=== PATIENT | male | born 1950 | race Caucasian/White ===

== ENCOUNTER 2016-05-14 12:03 | Emergency (ER) | payer MEDICARE, OTHER ==
[2016-05-14 12:22] VITALS: TEMP 97.9
--- NOTE | 2016-05-14 12:27 | ED.PDOC ---
History of Present Illness - General Chief Complaint: General Stated Complaint: diarrhea/weakness Time Seen by Provider: 05/14/16 12:09 Source: patient Exam Limitations: no limitations - History of Present Illness Initial Comments: Mr. Felipe Chandler 66 y/o male with history of Afib and HTN stated that he was moving his horse trailer today then he had sudden onset of watery diarrhea which he could not control and soiled his pants and got weak all over no history of fall.No dizziness no nausea vomiting no chest pains.No abdominal pain ,denies recent antibiotics. Timing/Duration: 1-3 hours Severity: moderate Improving Factors: nothing Worsening Factors: nothing Associated Symptoms: weakness Allergies/Adverse Reactions: Allergies Penicillin G Allergy (Verified 09/30/15 09:35) Home Medications: Ambulatory Orders Levothyroxine Sodium [Synthroid] 50 mcg PO DAILY 09/30/15 Metoprolol Tartrate 50 mg PO DAILY 09/30/15 Tadalafil [Cialis] 20 mg PO DAILY 09/30/15 Zolpidem Tartrate [Ambien] 10 mg PO BEDTIME 09/30/15 Review of Systems - Review of Systems Constitutional: States: see HPI EENTM: States: no symptoms reported Respiratory: States: no symptoms reported Cardiology: States: no symptoms reported Gastrointestinal/Abdominal: States: see HPI Genitourinary: States: no symptoms reported Musculoskeletal: States: no symptoms reported Skin: States: no symptoms reported Neurological: States: no symptoms reported Endocrine: States: no symptoms reported Hematologic/Lymphatic: States: no symptoms reported Past Medical History (General) - Patient Medical History Hx Cardiac Disorders: Yes - a fib Hx Congestive Heart Failure: No Hx Hypertension: Yes Hx Thyroid Disease: Yes Hx Diabetes: No Surgical History: appendectomy, cholecystectomy, other - neck,knee,rotator cuff, lumbar spine,colonoscopy - Social History Hx Tobacco Use: No Hx Chewing Tobacco Use: No - Activities of Daily Living Patient Lives Alone: No - Grooming Ability: Independent Eating (Feeding) Ability: Independent Toileting Ability: Standby Assistance Family Medical History - Family History Father Hx Family Hypertension: Yes - brother Hx Cardiac Disease: Yes - dad Hx Family Diabetes: Yes - brother Hx Family Cancer: Yes - lungs-mom; Mother Family History: Unknown Living Status: Hx Family Cancer: Yes Physical Exam - Physical Exam General Appearance: Alert, Comfortable, No apparent distress, Other - speech fluent Eye Exam: bilateral normal Ears, Nose, Throat: hearing grossly normal, normal ENT inspection, normal pharynx Neck: non-tender, full range of motion, supple Respiratory: chest non-tender, lungs clear, normal breath sounds, no respiratory distress, no accessory muscle use Cardiovascular/Chest: normal peripheral pulses, regular rate, rhythm, no edema, no gallop, no JVD, no murmur Peripheral Pulses: radial,right: 2+, radial,left: 2+ Gastrointestinal/Abdominal: normal bowel sounds, non tender, soft Back Exam: normal inspection, no CVA tenderness, no vertebral tenderness Extremity: normal range of motion, non-tender, normal inspection Neurologic: no motor/sensory deficits, alert, normal mood/affect, oriented x 3 Skin Exam: normal color, warm/dry Lymphatic: no adenopathy Progress - Results/Orders Results/Orders: 05/14/16 13:00 EKG STAT Laboratory Results WBC 7.7 K/mm3 (4.8-10.8) 05/14/16 12:35 RBC 4.72 M/mm3 (4.70-6.10) 05/14/16 12:35 Hgb 13.8 gm/dL (14.0-18.0) L 05/14/16 12:35 Hct 41.6 % (42.0-52.0) L 05/14/16 12:35 MCV 88.0 fl (80.0-94.0) 05/14/16 12:35 MCH 29.2 pg (27.0-31.0) 05/14/16 12:35 MCHC 33.2 g/dL (33.0-37.0) 05/14/16 12:35 RDW 15.4 % (11.5-14.5) H 05/14/16 12:35 Plt Count 286 K/mm3 (130-400) 05/14/16 12:35 MPV 8.2 fl (7.40-10.4) 05/14/16 12:35 Absolute Neuts (auto) 5.30 K/uL (1.8-6.8) 05/14/16 12:35 Absolute Lymphs (auto) 1.00 K/uL (1.0-3.4) 05/14/16 12:35 Absolute Monos (auto) 0.60 K/uL (0.2-0.8) 05/14/16 12:35 Absolute Eos (auto) 0.70 K/uL (0.0-0.4) H 05/14/16 12:35 Absolute Basos (auto) 0.10 K/uL (0.0-0.1) 05/14/16 12:35 Neutrophils % 68.9 % (42.0-78.0) 05/14/16 12:35 Lymphocytes % 12.5 % (20.0-50.0) L 05/14/16 12:35 Monocytes % 8.1 % (2.0-9.0) 05/14/16 12:35 Eosinophils % 9.7 % (1.0-5.0) H 05/14/16 12:35 Basophils % 0.8 % (0.0-2.0) 05/14/16 12:35 Sodium 136 mmol/L (135-145) 05/14/16 12:35 Potassium 4.4 mmol/L (3.6-5.0) 05/14/16 12:35 Chloride 103 mmol/L (101-111) 05/14/16 12:35 Carbon Dioxide 25 mmol/L (21-31) 05/14/16 12:35 Anion Gap 12.4 (12-18) 05/14/16 12:35 BUN 18 mg/dL (7-18) 05/14/16 12:35 Creatinine 1.26 mg/dL (0.6-1.3) 05/14/16 12:35 BUN/Creatinine Ratio 14.3 (10-20) 05/14/16 12:35 Random Glucose 92 mg/dL (70-105) 05/14/16 12:35 Serum Osmolality 273.5 mOsm/L (275-295) L 05/14/16 12:35 Calcium 9.7 mg/dL (8.4-10.2) 05/14/16 12:35 Total Bilirubin 0.9 mg/dL (0.2-1.0) 05/14/16 12:35 AST 20 IU/L (10-42) 05/14/16 12:35 ALT 11 IU/L (10-60) 05/14/16 12:35 Alkaline Phosphatase 95 IU/L (42-121) 05/14/16 12:35 Serum Total Protein 7.8 gm/dL (6.4-8.2) 05/14/16 12:35 Albumin 4.0 g/dl (3.2-5.5) 05/14/16 12:35 Globulin 3.8 gm/dL (2.3-3.5) H 05/14/16 12:35 Albumin/Globulin Ratio 1.1 (1.1-1.9) 05/14/16 12:35 Urine Color Yellow (Yellow) 05/14/16 12:53 Urine Appearance Clear (Clear) 05/14/16 12:53 Urine pH 7.5 (4.5-7.8) 05/14/16 12:53 Ur Specific [place] 1.020 (1.005-1.030) 05/14/16 12:53 Urine Protein Negative mg/dL 05/14/16 12:53 Urine Glucose (UA) Negative mg/dL (Negative) 05/14/16 12:53 Urine Ketones Negative mg/dL (NEGATIVE) 05/14/16 12:53 Urine Blood Trace-intact (Negative) H 05/14/16 12:53 Urine Nitrite Negative 05/14/16 12:53 Urine Bilirubin Negative (NEGATIVE) 05/14/16 12:53 Urine Urobilinogen 0.2 mg/dL (0.2-1.0) 05/14/16 12:53 Ur Leukocyte Esterase Negative (Negative) 05/14/16 12:53 Urine RBC 0-1 /hpf 05/14/16 12:53 Urine WBC 0 /hpf 05/14/16 12:53 Ur Epithelial Cells 0 /hpf 05/14/16 12:53 Urine Bacteria 0 05/14/16 12:53 - EKG/XRAY/CT EKG: Sinus, no ST T wave changes Comments: Heart rate 67 CT: HEAD w/o- no acute abnormalities noted Departure - Departure Clinical Impression: Diarrhea, Weakness generalized, Dizziness, History of atrial fibrillation, Eosinophilia Back ache Qualifiers: Back pain location: low back pain Back pain laterality: unspecified Sciatica presence: without sciatica Qualifier Code: (M54.5) Low back pain Time of Disposition: 14:20 Disposition: Discharge to Home or Self Care Condition: Good Departure Forms: ED Discharge - Pt. Copy, Patient Portal Self Enrollment Referrals: Andre Daley MD [Primary Care Provider] - 1-2 Weeks Home Medications: Ambulatory Orders Levothyroxine Sodium [Synthroid] 50 mcg PO DAILY 09/30/15 Metoprolol Tartrate 50 mg PO DAILY 09/30/15 Tadalafil [Cialis] 20 mg PO DAILY 09/30/15 Zolpidem Tartrate [Ambien] 10 mg PO BEDTIME 09/30/15 Additional Instructions: RETURN TO EMERGENCY ROOM NEEDED; FOLLOW UP WITH YOUR DOCTOR TOMORROW CALL HIS OFFICE FOR APPOINTMENT;CONTINUE WITH YOU HOME MEDICATION;RESUME Aspirin 81 mg daily
[2016-05-14] MEDS ORDERED: LACTATED RINGERS 1,000 ML IVS ONE (12:28)
--- NOTE | 2016-05-14 13:38 | CT ---
PROCEDURE: Head HISTORY: weakness,dizziness Indication: Same as above Comparison: None Technique: CT of the head was done without intravenous contrast was done in the orthogonal planes. This exam was performed according to our departmental dose-optimization program, which includes automated exposure control, adjustment of the mA and/or KV according to the patient's size and/or use of iterative reconstruction technique. FINDINGS: There is no intracranial hemorrhage, midline shift mass effect or acute focal infarct. There is prominence of the sylvian fissures and the cortical sulci reflecting age related volume loss. If clinical concern exists regarding an acute ischemic/vascular pathology being responsible for patient's symptomatology, an MRI of the brain is more sensitive than the current study, in ruling out such a possibility. There is good heart/white matter differentiation. The ventricular system is normal. The mastoid air cells are unremarkable . The paranasal sinuses show underlying changes of mild chronic sinusitis . There is no visualization of acute fractures involving the calvarium or the skull base. IMPRESSION: There is no acute intracranial abnormality. Electronically signed by: Dayne Rivera MD 05/14/2016 1:37 PM CDT
[2016-05-14] MEDS ORDERED: HYDROcodone 10MG/APAP 325MG 1 EA TAB PO ONE (14:23)
[2016-05-14 14:37] VITALS: BP 127/85; O2SAT 100
== END 2016-05-14 14:38 | disposition home or self-care (01) ==
LOC: ER 12:03
DX: R19.7 Diarrhea, unspecified (principal); R53.1 Weakness; I48.91 Unspecified atrial fibrillation; D72.1 Eosinophilia; R42 Dizziness and giddiness; M54.5 Low back pain; I10 Essential (primary) hypertension; E07.9 Disorder of thyroid, unspecified; Z88.0 Allergy status to penicillin; Z79.899 Other long term (current) drug therapy
CPT/HCPCS: 36415; 70450; 80053; 81001; 85025; 93005; J7120

== ENCOUNTER → 2016-05-22 | Outpatient (CLI) | payer MEDICARE, OTHER | END | disposition home or self-care (01) | LOC: GMAB 14:53 | PROVIDERS: ATTEND Family Medicine | DX: M62.81 Muscle weakness (generalized) (principal) ==

== ENCOUNTER → 2016-05-29 | Outpatient (CLI) | payer MEDICARE, OTHER ==
--- NOTE | 2016-05-30 01:00 | US ---
Procedure: US CAROTID DOPPLER BILATERAL Exam Date: 05/29/2016 Ordering Provider: JANIYA MOODY Clinical Indication: SYNCOPE AND COLLAPSE Comparison: None TECHNIQUE : Real-time cerebrovascular ultrasonography was obtained from sternal notch to the angle of the mandible bilaterally utilizing heart scale, color flow and spectral Doppler analysis. Systolic velocity ratios were calculated for internal carotid artery to common carotid artery bilaterally. FINDINGS: RIGHT CAROTID BIFURCATION: No significant atherosclerotic plaque. Peak systolic and end-diastolic velocities in the right internal carotid artery are 42 and 15 cm/s. Internal carotid/common carotid ratio is 0.6. Right vertebral flow is antegrade. LEFT CAROTID BIFURCATION: No significant atherosclerotic plaque. Peak systolic and end-diastolic velocities in the left internal carotid artery are 99 and 10 cm/s. Internal carotid/common carotid ratio is 1.1. Left vertebral flow is antegrade. IMPRESSION: 1. No significant atherosclerotic plaque in each carotid bulb and ICA origin. 2. There is no significant stenosis (23% on the right and 9% on the left) at either ICA origin. 3. Bilateral antegrade vertebral artery flow. Electronically signed by: Mt Manley MD 05/30/2016 1:00 AM CDT
== END | disposition home or self-care (01) ==
LOC: US 10:48
PROVIDERS: ATTEND Family Medicine
DX: R55 Syncope and collapse (principal)

== ENCOUNTER 2016-08-30 15:02 | Emergency (ER) | payer MEDICARE, OTHER ==
[2016-08-30] MEDS ORDERED: NITROGLYCERIN 0.4 MG 25 EA TAB SL ONE (15:16)
[2016-08-30] MEDS ORDERED: ASPIRIN (CHEWABLE) 81 MG TAB ONE (15:17)
[2016-08-30] MEDS: ASPIRIN (CHEWABLE) 81 MG TAB PO ONE (15:31)
[2016-08-30] MEDS: NITROGLYCERIN 0.4 MG 25 EA TAB SL ONE (15:31)
--- NOTE | 2016-08-30 15:31 | ED.PDOC ---
History of Present Illness - General Chief Complaint: Chest Pain/NV Stated Complaint: chest pain Time Seen by Provider: 08/30/16 15:08 Source: patient, RN notes reviewed, Vital Signs reviewed Exam Limitations: no limitations - History of Present Illness Initial Comments: Patient comes in with c/o of chest pain and SOB that started yesterday and is still present today. He describes the pain as a heaviness. No nausea or diaphoresis. Reports he has no energy, just wants to lay around. No similar episodes in the past. + family Hx of cardiovascular disease in his father and older brother. Reports he has not been feeling well for a couple of weeks but thought it was allergies. Timing/Duration: 24 hours Severity/Quality: moderate - 5/10, other - Heavy Location: substernal Chest Pain Radiation: no radiation Activities at Onset: activity, rest Prior Chest Pain/Cardiac Workup: no prior chest pain Improving Factors: nothing Worsening Factors: nothing Nitro Today/Relief: 0.4 mg x 1, provided by ED, no relief - Will hold off on further NTG due to taking Cialis ~2 days ago Aspirin Treatment Today: 81 mg x 4, provided by ED Associated Symptoms: fatigue, shortness of breath Allergies/Adverse Reactions: Allergies Ketorolac Tromethamine [From Toradol] Allergy (Verified 08/30/16 15:30) Penicillin G Allergy (Verified 08/30/16 15:30) Home Medications: Ambulatory Orders Levothyroxine Sodium [Synthroid] 50 mcg PO DAILY 09/30/15 Metoprolol Tartrate 50 mg PO DAILY 09/30/15 Tadalafil [Cialis] 20 mg PO DAILY 09/30/15 Zolpidem Tartrate [Ambien] 10 mg PO BEDTIME 09/30/15 Review of Systems - Review of Systems Constitutional: States: malaise. Denies: chills, diaphoresis, fever Respiratory: States: short of breath Cardiology: States: chest pain. Denies: palpitations, syncope Gastrointestinal/Abdominal: States: no symptoms reported. Denies: nausea Musculoskeletal: States: no symptoms reported Skin: States: no symptoms reported Neurological: States: no symptoms reported All other Systems: No Change from Baseline Past Medical History (General) - Patient Medical History Hx Cardiac Disorders: Yes - a fib Hx Congestive Heart Failure: No Hx Hypertension: Yes Hx Thyroid Disease: Yes Hx Diabetes: No - Vaccination History Hx Influenza Vaccination: No Hx Pneumococcal Vaccination: No - Social History Hx Tobacco Use: No Hx Chewing Tobacco Use: No Family Medical History - Family History Mother Family History: Unknown Living Status: Hx Family Cancer: Yes Father Hx Family Hypertension: Yes - brother Hx Cardiac Disease: Yes - dad Hx Family Diabetes: Yes - brother Hx Family Cancer: Yes - lungs-mom; Physical Exam - Physical Exam General Appearance: Alert, Anxious, No apparent distress, Well Developed, Well Groomed, Well Hydrated, Well Nourished Neck: non-tender, full range of motion, supple, normal inspection Respiratory: chest non-tender, no respiratory distress, no accessory muscle use , decreased breath sounds - RLL o/w normal Cardiovascular/Chest: regular rate, rhythm, no edema, no gallop, no JVD, no murmur Gastrointestinal/Abdominal: normal bowel sounds, non tender, soft, no organomegaly, no pulsatile mass Extremity: normal inspection, no pedal edema Neurologic: alert, normal mood/affect, oriented x 3 Skin Exam: normal color, warm/dry Progress - Progress Progress: 08/30/16 17:08 Patient c/o R sided chest pain radiating around to back. Will repeat EKG. Awaiting second set of cardiac enzymes @ 18:30 08/30/16 19:27 Patient is doing well. Second set of cardiac enzymes are normal. 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 - Results/Orders Results/Orders: Laboratory Tests 08/30/16 08/30/16 08/30/16 15:30 15:30 15:30 WBC 8.7 RBC 5.87 Hgb 18.0 Hct 54.7 H MCV 93.2 MCH 30.6 MCHC 32.9 L RDW 18.1 H Plt Count 169 MPV 8.3 Absolute Neuts (auto) 6.80 Absolute Lymphs (auto) 0.80 L Absolute Monos (auto) 0.70 Absolute Eos (auto) 0.30 Absolute Basos (auto) 0.10 Neutrophils % 78.6 H Lymphocytes % 9.0 L Monocytes % 8.6 Eosinophils % 2.9 Basophils % 0.9 D-Dimer, Quantitative < 230 Sodium 141 Potassium 4.3 Chloride 106 Carbon Dioxide 23 Anion Gap 16.3 BUN 16 Creatinine 1.19 BUN/Creatinine Ratio 13.4 Random Glucose 92 Serum Osmolality 282.1 Calcium 9.4 Total Bilirubin 0.7 AST 32 ALT 24 Alkaline Phosphatase 79 Creatine Kinase 185 H CK-MB (CK-2) 3.8 CK-MB (CK-2) % Not Reportable Troponin I < 0.02 Serum Total Protein 7.2 Albumin 4.2 Globulin 3.0 Albumin/Globulin Ratio 1.4 08/30/16 18:45 WBC RBC Hgb Hct MCV MCH MCHC RDW Plt Count MPV Absolute Neuts (auto) Absolute Lymphs (auto) Absolute Monos (auto) Absolute Eos (auto) Absolute Basos (auto) Neutrophils % Lymphocytes % Monocytes % Eosinophils % Basophils % D-Dimer, Quantitative Sodium Potassium Chloride Carbon Dioxide Anion Gap BUN Creatinine BUN/Creatinine Ratio Random Glucose Serum Osmolality Calcium Total Bilirubin AST ALT Alkaline Phosphatase Creatine Kinase 145 CK-MB (CK-2) 3.3 CK-MB (CK-2) % Not Reportable Troponin I 0.03 Serum Total Protein Albumin Globulin Albumin/Globulin Ratio - EKG/XRAY/CT EKG: Sinus, no ST T wave changes, Unchanged from - 05/14/16 - Additional EKG/XRAY/Consults EKG #2: Sinus, no ST T wave changes, Unchanged from - Prior EKG Departure - Departure Clinical Impression: Chest pain Qualifiers: Chest pain type: unspecified Qualified Code(s): R07.9 - Chest pain, unspecified Time of Disposition: 19:29 Disposition: Discharge to Home or Self Care Condition: Good Departure Forms: ED Discharge - Pt. Copy, Patient Portal Self Enrollment Instructions: DI for Chest Pain Diet: resume usual diet Activity: increase activity as tolerated Referrals: Andre Daley MD [Primary Care Provider] - 1-2 Days ROSALES RAMIREZ MD [Consulting Staff] - 1-2 Weeks Home Medications: Ambulatory Orders Levothyroxine Sodium [Synthroid] 50 mcg PO DAILY 09/30/15 Metoprolol Tartrate 50 mg PO DAILY 09/30/15 Tadalafil [Cialis] 20 mg PO DAILY 09/30/15 Zolpidem Tartrate [Ambien] 10 mg PO BEDTIME 09/30/15
[2016-08-30] MEDS: MORPHINE SULFATE INJ 10 MG/ML VIAL IV ONE (15:51)
--- NOTE | 2016-08-30 15:51 | RAD ---
EXAM DESCRIPTION: Chest,1 View CLINICAL HISTORY: 66 years Male, Chest pain COMPARISON: None. IMPRESSION: The heart is at the upper limits of normal in size, and is in part accentuated by technique. There is no central pulmonary vascular congestion. Mildly coarsened bibasilar interstitial markings, favor to represent atelectasis/scarring, but a superimposed atypical infectious/inflammatory process is not totally excluded. No confluent airspace consolidation, pleural effusion, or pneumothorax. No acute osseous abnormality. Electronically signed by: Abram Toth MD 08/30/2016 3:46 PM CDT
[2016-08-30 19:31] VITALS: BP 150/99; TEMP 98.7; O2SAT 98
== END 2016-08-30 19:35 | disposition home or self-care (01) ==
LOC: ER 15:02
DX: R07.9 Chest pain, unspecified (principal); I48.91 Unspecified atrial fibrillation; I10 Essential (primary) hypertension; E07.9 Disorder of thyroid, unspecified; Z79.899 Other long term (current) drug therapy; Z82.49 Family history of ischemic heart disease and other diseases of the circulatory system; Z88.6 Allergy status to analgesic agent; Z88.0 Allergy status to penicillin
CPT/HCPCS: 36415; 71010; 80053; 82550; 82553; 84484; 85025; 85379; 93005; J2270

== ENCOUNTER → 2016-09-25 | Outpatient (CLI) | payer MEDICARE, OTHER | END | disposition home or self-care (01) | LOC: GMAB 14:28 | PROVIDERS: ATTEND Family Medicine | DX: E03.9 Hypothyroidism, unspecified (principal); Z12.5 Encounter for screening for malignant neoplasm of prostate; E29.9 Testicular dysfunction, unspecified; I10 Essential (primary) hypertension | CPT/HCPCS: 84403; 84439; 84443; 84481; G0103 ==

== ENCOUNTER → 2016-10-30 | Outpatient (CLI) | payer MEDICARE, OTHER ==
--- NOTE | 2016-10-31 00:17 | MRI ---
EXAM DATE: 10/30/2016 12:00 AM CDT. PROCEDURE: MR LUMBAR SPINE WITHOUT IV CONTRAST. INDICATION: RADICULOPATHY. COMPARISON: MRI lumbar spine 12/29/2015. TECHNIQUE: Multiplanar T1 and T2 MRI images of the lumbar were acquired without administration of intravenous contrast. FINDINGS: Postsurgical changes of laminectomy at L4 and L5 with posterior spinal fusion. The lumbar vertebral bodies demonstrate normal height and alignment. A disc spacer is present at L5-S1. The conus terminates at the level of L1-L2. The cauda equina nerve roots are unremarkable. The partially visualized thoracic cord is normal. L1-L2: No spinal canal stenosis or neural foraminal stenosis. L2-L3: Slight left eccentric disc bulge, prominent epidural fat, and ligamentous hypertrophy contributes to moderate spinal canal stenosis. Moderate facet arthropathy contributes to severe left foraminal stenosis which has progressed from the prior exam. Mild right foraminal narrowing. L3-L4: There has been decompression at this level although there remains moderate spinal canal stenosis secondary to a disc bulge and ligamentous hypertrophy. Moderate facet arthropathy without significant foraminal stenosis. L4-L5: No significant spinal canal stenosis at this level. Evaluation for foraminal stenosis is limited secondary to susceptibility artifact from fusion hardware. There is an ovoid structure measuring 2.6 cm within the right lateral intervertebral disc space which protrudes into the right lateral recess, for example image nine of series 501 causing effacement of the lateral recess. L5-S1: No significant spinal canal stenosis at this level. Evaluation for foraminal stenosis is limited secondary to susceptibility artifact. The bilateral renal cysts. IMPRESSION: Interval L4-L5 fusion with decompression of previously seen severe spinal canal stenosis at L4-L5. An ovoid structure is seen within the right intervertebral disc space at L4-L5 and protrudes into the right lateral recess . It is unclear whether this represents a disc spacer or bone. CT may be more definitive. Severe left foraminal stenosis at L2-L3 secondary to facet arthropathy. This finding has progressed from the prior exam. Multilevel moderate spinal canal stenosis secondary to degenerative changes, prominent epidural fat, and a congenitally small spinal canal. Electronically signed by: Guido Smith MD 10/31/2016 12:16 AM CDT
== END | disposition home or self-care (01) ==
LOC: MRI 14:51
PROVIDERS: ATTEND Family Medicine
DX: M54.16 Radiculopathy, lumbar region (principal)

== ENCOUNTER 2016-11-04 18:27 | Emergency (ER) | payer MEDICARE, OTHER ==
[2016-11-04] MEDS ORDERED: PROMETHAZINE HCL INJ 25 MG in SODIUM CHLORIDE 0.9% 50ML 50 ML IVPB ONE (18:52)
[2016-11-04] MEDS ORDERED: HYDROmorphone HCL INJ 2 MG/ML VIAL IV ONE ×2 (18:52→21:03)
[2016-11-04] MEDS ORDERED: SODIUM CHLORIDE 0.9% 1000ML 1,000 ML IVS ONE ×2 (18:53→21:08)
[2016-11-04] MEDS ORDERED: PROMETHAZINE HCL INJ 25 MG/ML VIAL ONE (19:01)
[2016-11-04] MEDS ORDERED: SODIUM CHLORIDE 0.9% 50ML 50 ML ONE (19:02)
[2016-11-04] MEDS ORDERED: PANTOPRAZOLE SODIUM IV 40 MG VIAL IV ONE (19:08)
--- NOTE | 2016-11-04 20:00 | RAD ---
EXAM DESCRIPTION: Abdomen Series CLINICAL HISTORY: 66 years, Male, vomiting immediately after ingestion 4d COMPARISON: Chest x-ray dated 08/30/2016. FINDINGS: A frontal chest radiograph along with supine and upright radiograph the abdomen and pelvis were performed. Loops of gas-filled small bowel are dilated with air-fluid levels. Facet and stool distend the proximal colon with a cut off at the splenic flexure. No colonic air-fluid level. Multiple surgical clips are scattered. The lungs are moderately expanded and clear aside from LEFT lower lobe atelectasis versus scarring. The costophrenic sulci are sharp. No pneumoperitoneum is seen. Postoperative changes are noted at L5-S1. IMPRESSION: Small bowel obstruction versus less likely mid colonic obstruction. Recommend CT imaging for further evaluation if clinically indicated. Electronically signed by: Anushka Holden MD 11/04/2016 7:59 PM CDT
[2016-11-04] MEDS ORDERED: MAGNESIUM SULFATE PREMIX 2GM 2 GM in PREMIX BAG 1 BAG IVPB ONE (20:16)
[2016-11-04] MEDS ORDERED: levoFLOXacin 500MG IV 500 MG in PREMIX BAG 1 BAG IVPB ONE (20:18)
[2016-11-04] MEDS ORDERED: levoFLOXacin 500MG IV 100 ML IVPB ONE (20:27)
[2016-11-04] MEDS ORDERED: metroNIDAZOLE IV PREMIX 500MG 500 MG in PREMIX BAG 1 BAG IVPB ONE (21:05)
--- NOTE | 2016-11-04 21:07 | CT ---
EXAM DESCRIPTION: Abdoment/Pelvis w/o Contrast CLINICAL HISTORY: 66 years Male, possible sbo COMPARISON: CT abdomen 2008 TECHNIQUE: Contiguous axial CT images of the abdomen and pelvis were acquired without administration of intravenous contrast. Coronal and sagittal reformatted images are provided. This exam was performed according to our departmental dose-optimization program which includes use of Automated Exposure Control, adjustment of the mA and/or kV according to patient size and/or use of iterative reconstruction technique. FINDINGS: Chest base: Mild dependent atelectasis bilaterally Liver: Diffuse hepatic steatosis Gallbladder: Surgically absent Spleen: Unremarkable. Adrenals: Unremarkable. Pancreas: Unremarkable. Right Kidney: 13 mm right renal cyst. No renal stones or hydronephrosis. Left Kidney: Two cysts are seen arising from the left kidney, the larger cyst more superior measuring 3 cm. No hydronephrosis. Aorta and branch vessels: Mild calcific atherosclerosis Lymph nodes: No lymphadenopathy. Bowels: No obstruction. Colon: Scattered colonic diverticula Appendix: Not identified Peritoneum: No free air or free fluid. Pelvic organs: Unremarkable. Bladder: Unremarkable. Bones and soft tissues: No acute osseous or soft tissue abnormalities. Small fat-containing inguinal hernias bilaterally. Atrophy of the right rectus abdominis muscle. Postsurgical changes of decompression at L4-L5 with L4 S1 arthrodesis. IMPRESSION: No acute intra-abdominal abnormality. No bowel obstruction. Diffuse hepatic steatosis. Scattered colonic diverticula. Electronically signed by: Guido Smith MD 11/04/2016 9:06 PM CDT
[2016-11-04] MEDS ORDERED: metroNIDAZOLE IV PREMIX 500MG 100 ML IVPB ONE (21:13)
[2016-11-04] MEDS ORDERED: ACETAMINOPHEN 325 MG TAB PO ONE (21:15)
[2016-11-04] MEDS ORDERED: ALUMINUM & MAGNESIUM HYDROXIDE 30 ML UD PO ONE (21:17)
[2016-11-04] MEDS ORDERED: MAGNESIUM SULFATE PREMIX 2GM 50 ML IVPB ONE (21:41)
[2016-11-04] MEDS ORDERED: METOPROLOL TARTRATE INJ 5 MG/5 ML VIAL IV ONE ×2 (21:55)
[2016-11-04 22:04] VITALS: O2SAT 92
--- NOTE | 2016-11-04 22:09 | ED.PDOC ---
History of Present Illness - General Chief Complaint: Back Pain or Injury Stated Complaint: low back pain Time Seen by Provider: 11/04/16 18:32 Source: patient Exam Limitations: no limitations - History of Present Illness Initial Comments: the patient is a 6-year-old male presenting to the emergency room secondary to 4 days of progressive symptoms. 4 days ago the patient ran out of his hydrocodone for his low back pain. He suddenly started throwing up. he had apparently only been on the hydrocodone for a period of approximately 2 weeks. His back pain worsened as he threw up more. The patient got to where could not even take in water without throwing it up and very quickly after he ingested it. His abdomen is sore from vomiting. He has been having bowel movements and passing gas. He was found to be febrile here. 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 He has a spinal surgeon in [place]. Additionally the patient has a history of distant A. fib that has been corrected with Dr. Solis and the patient currently takes metoprolol for it. He is uncertain how much of metoprolol has been able to hold down over the past few days. he is significantly tachycardic here. He also has a history of gastric ulcers in the past but takes nothing for that currently. He also has a history of erectile dysfunction, hypertension, hypothyroidism, and he's had surgeries for his gallbladder, lumbar spine, cervical spine, knee and shoulder. He feels dehydrated and weak. Severity: severe Improving Factors: nothing Worsening Factors: nothing Associated Symptoms: fever/chills, loss of appetite, malaise, nausea/vomiting, weakness Allergies/Adverse Reactions: Allergies Flu Virus Vaccine Allergy (Verified 11/04/16 18:43) Ketorolac Tromethamine [From Toradol] Allergy (Verified 08/30/16 15:30) Penicillin G Allergy (Verified 08/30/16 15:30) Home Medications: Ambulatory Orders Levothyroxine Sodium [Synthroid] 50 mcg PO DAILY 09/30/15 Metoprolol Tartrate 50 mg PO DAILY 09/30/15 Tadalafil [Cialis] 20 mg PO DAILY 09/30/15 Zolpidem Tartrate [Ambien] 10 mg PO BEDTIME 09/30/15 Review of Systems - Review of Systems Constitutional: States: fever, malaise, weakness EENTM: States: no symptoms reported Respiratory: States: other - hiccups Cardiology: States: no symptoms reported Gastrointestinal/Abdominal: States: abdominal pain, nausea, vomiting Genitourinary: States: no symptoms reported Musculoskeletal: States: back pain Skin: States: dryness Neurological: States: anxiety Endocrine: States: increased thirst All other Systems: No Change from Baseline Past Medical History (General) - Patient Medical History Hx Seizures: No Hx Stroke: No Hx Dementia: No Hx Asthma: No Hx of COPD: No Hx Cardiac Disorders: Yes - a fib Hx Congestive Heart Failure: No Hx Pacemaker: No Hx Hypertension: No Hx Thyroid Disease: Yes Hx Diabetes: No Hx Gastroesophageal Reflux: No Hx Renal Disease: No Hx Cancer: No Hx of HIV: No Hx Hepatitis C: No Hx MRSA: No Surgical History: cholecystectomy - Vaccination History Hx Tetanus, Diphtheria Vaccination: No Hx Influenza Vaccination: No Hx Pneumococcal Vaccination: No Immunizations Up to Date: Yes - Social History Hx Tobacco Use: No Hx Chewing Tobacco Use: Yes Hx Alcohol Use: Yes Hx Substance Use: No Hx Substance Use Treatment: No Hx Depression: No - Female History Patient : No Family Medical History - Family History Mother Family History: Unknown Living Status: Hx Family Cancer: Yes Father Hx Family Hypertension: Yes - brother Hx Cardiac Disease: Yes - dad Hx Family Diabetes: Yes - brother Hx Family Cancer: Yes - lungs-mom; Physical Exam - Physical Exam General Appearance: Alert, Anxious Eye Exam: bilateral normal Ears, Nose, Throat: hearing grossly normal, normal pharynx, other - mucous membranes are mildly dry. Neck: non-tender, supple Respiratory: chest non-tender, lungs clear, normal breath sounds, no respiratory distress, no accessory muscle use Cardiovascular/Chest: normal peripheral pulses, no edema, tachycardia Peripheral Pulses: radial,right: 2+, radial,left: 2+, dorsalis pedis,right: 2+, dorsalis pedis,left: 2+ Gastrointestinal/Abdominal: other - bdomen is mildly distended and tympanic. No definite rebound or peritoneal signs. Rectal Exam: deferred Back Exam: other - patient has diffuse discomfort surrounding his lumbar spine. Extremity: normal range of motion - for the patient given his previous surgeries , non-tender, no pedal edema, no calf tenderness, normal capillary refill Neurologic: negative spotter II-XII nml as tested, alert, normal mood/affect, oriented x 3 Skin Exam: warm/dry, pallor Comments: Vital Signs - 24 hr 11/04/16 11/04/16 11/04/16 18:32 18:43 19:28 Temperature 102.4 F H Pulse Rate [ 136 H 136 H 130 H Left Radial] Respiratory 20 20 20 Rate Blood Pressure 136/84 142/76 [Left Arm] O2 Sat by Pulse 92 L 92 L Oximetry 11/04/16 11/04/16 11/04/16 20:28 21:00 22:00 Temperature Pulse Rate [ 150 H 145 H 128 H Left Radial] Respiratory 20 20 20 Rate Blood Pressure 136/84 151/73 119/71 [Left Arm] O2 Sat by Pulse 93 L 94 L 92 L Oximetry Progress - Progress Progress: 11/04/16 22:13 the patient is 66-year-old male presenting to the emergency room secondary to 4 days of symptoms, including progressive back pain from being out of his medications as well as vomiting. The patient has received some pain medications for his back pain. He has also received some antiemetics which have helped some. the patient is febrile with a leukocytosis. Cultures have been performed. The patient did receive a dose of IV Levaquin and Flagyl. The vomiting symptoms are somewhat consistent possibly with a lower esophageal pathology. CT scan is reassuring and showed no evidence of any perforation or ischemic bowel or obstruction. The patient has received a dose of Maalox as well as Protonix. The patient is in acute renal failure and has received 2 L of IV fluids. He has also received a dose of magnesium for his hypomagnesemia. These will of course need to be rechecked. The patient appears to be in a sinus tachycardia and did receive a dose of IV Lopressor here which is improved that problem somewhat. He does normally take metoprolol daily. The patient apparently does see Dr. Solis if his assistance is needed. He has had a history of stomach ulcers in the past. Transferring for her level of care. - Results/Orders Results/Orders: 11/04/16 18:53 UA [URINALYSIS] Stat pending at this time, not yet collected 11/04/16 19:10 BLOOD CULTURE Stat pending at this time Laboratory Results - last 24 hr 11/04/16 11/04/16 11/04/16 18:52 18:52 18:52 WBC 12.1 H RBC 5.27 Hgb 17.1 Hct 51.1 MCV 96.9 H MCH 32.4 H MCHC 33.4 RDW 15.0 H Plt Count 123 L MPV 8.0 Absolute Neuts (auto) 10.60 H Absolute Lymphs (auto) 0.30 L Absolute Monos (auto) 1.20 H Absolute Eos (auto) 0.00 Absolute Basos (auto) 0.00 Neutrophils % 87.6 H Neutrophils % (Manual) 43.0 Lymphocytes % 2.3 L Lymphocytes % (Manual) 3.0 Monocytes % 9.8 H Monocytes % (Manual) 7.0 Eosinophils % 0.0 L Basophils % 0.3 Band Neutrophils 45.0 Metamyelocytes 2.0 Platelet Estimate Decreased Polychromasia 1+ Anisocytosis 1+ PT 12.6 H INR 1.120 PTT (SP) 33.9 Sodium 133 L Potassium 4.3 Chloride 97 L Carbon Dioxide 20 L Anion Gap 20.3 H BUN 37 H Creatinine 3.01 H BUN/Creatinine Ratio 12.3 Random Glucose 105 Serum Osmolality 275.4 Lactic Acid Calcium 9.2 Magnesium 1.3 L Total Bilirubin 1.6 H AST 72 H ALT 59 Alkaline Phosphatase 54 Creatine Kinase 392 H* CK-MB (CK-2) 4.9 H* CK-MB (CK-2) % 1.25 Troponin I 0.03 B-Natriuretic Peptide 84.3 Serum Total Protein 7.7 Albumin 4.0 Globulin 3.7 H Albumin/Globulin Ratio 1.1 Amylase 33 Lipase 14 L 11/04/16 20:16 WBC RBC Hgb Hct MCV MCH MCHC RDW Plt Count MPV Absolute Neuts (auto) Absolute Lymphs (auto) Absolute Monos (auto) Absolute Eos (auto) Absolute Basos (auto) Neutrophils % Neutrophils % (Manual) Lymphocytes % Lymphocytes % (Manual) Monocytes % Monocytes % (Manual) Eosinophils % Basophils % Band Neutrophils Metamyelocytes Platelet Estimate Polychromasia Anisocytosis PT INR PTT (SP) Sodium Potassium Chloride Carbon Dioxide Anion Gap BUN Creatinine BUN/Creatinine Ratio Random Glucose Serum Osmolality Lactic Acid 2.6 H* Calcium Magnesium Total Bilirubin AST ALT Alkaline Phosphatase Creatine Kinase CK-MB (CK-2) CK-MB (CK-2) % Troponin I B-Natriuretic Peptide Serum Total Protein Albumin Globulin Albumin/Globulin Ratio Amylase Lipase acute abdominal series shows changes possibly consistent with a small bowel obstruction. CT of abdomen and pelvis showed no evidence of a small bowel obstruction. No obvious acute pathology. He does have chronic renal cysts. EKG shows sinus tachycardia at a rate of 154 bpm. QTc interval is 531. Slow R- wave progression in anterior leads. [place] is normal. No definite acute ST segment changes concerning for ischemia. Departure - Departure Clinical Impression: Hypomagnesemia, Sinus tachycardia Acute renal failure Qualifiers: Acute renal failure type: unspecified Qualified Code(s): N17.9 - Acute kidney failure, unspecified Vomiting Qualifiers: Vomiting type: unspecified Vomiting Intractability: non-intractable Nausea presence: without nausea Qualified Code(s): R11.11 - Vomiting without nausea Leukocytosis Qualifiers: Leukocytosis type: unspecified Qualified Code(s): D72.829 - Elevated white blood cell count, unspecified Disposition: Transfer to Hospital Home Medications: Ambulatory Orders Levothyroxine Sodium [Synthroid] 50 mcg PO DAILY 09/30/15 Metoprolol Tartrate 50 mg PO DAILY 09/30/15 Tadalafil [Cialis] 20 mg PO DAILY 09/30/15 Zolpidem Tartrate [Ambien] 10 mg PO BEDTIME 09/30/15 Transfer to Outside Facility - Transfer Information Accepting Provider:: dr villafuerte Accepting Facility: [facility] Reason for Transfer: specialized care not available
[2016-11-04 22:27] VITALS: BP 137/85; TEMP 102.9
== END 2016-11-04 22:40 | disposition short-term general hospital (02) ==
LOC: ER 18:27
DX: R00.0 Tachycardia, unspecified (principal); N17.9 Acute kidney failure, unspecified; R11.11 Vomiting without nausea; D72.829 Elevated white blood cell count, unspecified; E83.42 Hypomagnesemia; I48.91 Unspecified atrial fibrillation; E07.9 Disorder of thyroid, unspecified; Z88.0 Allergy status to penicillin; Z88.7 Allergy status to serum and vaccine
CPT/HCPCS: 36415; 74020; 74176; 80053; 82150; 82550; 82553; 83605; 83690; 83735; 83880; 84484; 85025; 85610; 85730; 87040; 93005; A4216; J1170; J1956; J2550; J3475; J3490; J7030

== ENCOUNTER → 2016-11-15 | Outpatient (CLI) | payer MEDICARE, OTHER ==
--- NOTE | 2016-11-16 15:03 | MRI ---
Study: MRI of the Left Knee. Indication: PAIN IN LEFT KNEE Technique: Multiplanar, multi sequence MRI of the left knee was obtained without intravenous contrast. Comparison: None. FINDINGS: Mucoid degeneration ACL with mild intrasubstance cystic change indicating remote interstitial injury. PCL and lateral collateral ligament complex intact. MCL is lax and bowed indicating sequela of a remote MCL sprain. No acute tear. Irregular high-grade radial tearing of the posterior horn/root medial meniscus with near complete transection. Background grade 2-3 chondrosis medial compartment with extensive grade 4 chondral surface irregularity and thinning of the central to posterior weightbearing medial femoral condyle. Maceration and severe attenuation lateral meniscus with no normal meniscal tissue identified. Grade 4 chondral loss at the posterior weightbearing portions of the lateral compartment with less pronounced grade 2-3 chondrosis more anteriorly. Quadriceps and patellar tendinosis without tear. Patellar tendon intact. Heterogeneous grade 2/3 chondrosis medial patellar facet/apex Large knee effusion with scattered synovitis/debris. No acute fracture. IMPRESSION: Mucoid degeneration ACL. High-grade radial tearing posterior horn/root medial meniscus. Maceration and severe attenuation lateral meniscus. Extensive tricompartmental chondrosis as above. Large knee effusion. Electronically signed by: Duglas Saucedo MD 11/16/2016 3:02 PM CDT
== END | disposition home or self-care (01) ==
LOC: MRI 11:59
PROVIDERS: ATTEND Family Medicine
DX: M25.562 Pain in left knee (principal)

== ENCOUNTER → 2016-12-15 | Outpatient (CLI) | payer MEDICARE, OTHER | END | disposition home or self-care (01) | LOC: GMAB 10:26 | PROVIDERS: ATTEND Family Medicine | DX: A40.9 Streptococcal sepsis, unspecified (principal) ==

== ENCOUNTER → 2017-03-06 | Outpatient (CLI) | payer MEDICARE, OTHER | LOC: GMAB 18:22 | PROVIDERS: ATTEND Family Medicine | DX: I10 Essential (primary) hypertension (principal) ==

== ENCOUNTER → 2017-03-07 | Outpatient (CLI) | payer MEDICARE, OTHER ==
--- NOTE | 2017-03-08 13:16 | MRI ---
MRI right knee without contrast INDICATION: Knee pain previous surgery instability 3 weeks ago status post fall TECHNIQUE: Noncontrast MR imaging right knee standard protocol FINDINGS: Previous patellar tendon graft ACL reconstruction. Fairly large joint effusion. There is a mass in the intercondylar region indicating arthrofibrosis and/or prolapsed ACL fibers. There is interstitial graft degeneration with anterior drawer sign of the tibia suggesting a degree of graft laxity. The PCL is intact. No acute pivot shift is noted. Vague residual or recurrent horizontal tear posterior horn lateral meniscus post partial meniscectomy. Extensive partial meniscectomy change posterior horn medial meniscus with fraying and significant volume loss. Multifocal up to grade 4 chondrosis midportion medial femoral condyle extending posteriorly with mild subchondral edema. Multifocal chondrosis up to grade 4 midportion medial femoral condyle and medial tibial plateau. No rupture the extensor mechanism. Mild grade 2-3 chondral fissuring medial patellar facet. No advanced patellofemoral arthrosis. 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
== END ==
LOC: MRI 08:17
PROVIDERS: ATTEND Family Medicine
DX: M25.561 Pain in right knee (principal); M25.461 Effusion, right knee; M94.8X6 Other specified disorders of cartilage, lower leg

== ENCOUNTER 2017-03-28 04:44 | Emergency (ER) | payer MEDICARE, OTHER ==
[2017-03-28 04:59] VITALS: TEMP 98.5
[2017-03-28] MEDS ORDERED: LIDOCAINE 1% 10 ML VIAL INJ ONE (05:01)
[2017-03-28] MEDS ORDERED: LIDOCAINE 2% W/ EPINEPHRINE 20 ML VIAL INJ ONE (05:01)
[2017-03-28] MEDS ORDERED: CHLORHEXIDINE GLUCONATE 4 % 15 ML UD TOP ONE (05:08)
[2017-03-28] MEDS ORDERED: TETANUS,DIPHTHERIA,PERTUSSIS 1 EA SYG IM ONE (05:26)
[2017-03-28] MEDS ORDERED: NEOMYCIN-BACITRACIN-POLYMYXIN 0.9 GM UD TOP ONE (05:46)
--- NOTE | 2017-03-28 05:51 | ED.PDOC ---
History of Present Illness - General Chief Complaint: Laceration Stated Complaint: forehead laceration Time Seen by Provider: 03/28/17 05:47 Source: family - History of Present Illness Initial Comments: PT TAKES AMBIEN TO SLEEP. PT IS SOMNOLENT FROM THE MEDICATION (AND 5 AM) BUT AROUSABLE, SO HX IS PER HIS SINCE PT IS SNORING. HIS MENTIONS HE BECOMES VERY SLEEPY AND FORGETFUL ON THE AMBIEN. HE GOT OUT OF BED TO USE THE RESTROOM, FELL AND HIT HEAD ON THE NIGHT STAND. SHE BROUGHT HIM TO THE ER. Timing/Duration: just prior to arrival Severity: severe Location: scalp Improving Factors: nothing Worsening Factors: nothing Allergies/Adverse Reactions: Allergies Flu Virus Vaccine Allergy (Verified 11/04/16 18:43) Ketorolac Tromethamine [From Toradol] Allergy (Verified 08/30/16 15:30) Penicillin G Allergy (Verified 08/30/16 15:30) Home Medications: Ambulatory Orders Levothyroxine Sodium [Synthroid] 50 mcg PO DAILY 09/30/15 Metoprolol Tartrate 50 mg PO DAILY 09/30/15 Tadalafil [Cialis] 20 mg PO DAILY 09/30/15 Zolpidem Tartrate [Ambien] 10 mg PO BEDTIME 09/30/15 Aspirin [Aspirin EC Low Dose] 81 mg PO 03/28/17 Review of Systems - Review of Systems Musculoskeletal: States: other - CHRONIC KNEE PAIN; HAS UPCOMING SURGERY SCHEDULED. All other Systems: Reviewed and Negative - PT IS AROUSABLE FOR ROS AND P.E. Past Medical History (General) - Patient Medical History Hx Seizures: No Hx Stroke: No Hx Dementia: No Hx Asthma: No Hx of COPD: No Hx Cardiac Disorders: Yes - a fib Hx Congestive Heart Failure: No Hx Pacemaker: No Hx Hypertension: No Hx Thyroid Disease: Yes Hx Diabetes: No Hx Gastroesophageal Reflux: No Hx Renal Disease: No Hx Cancer: No Hx of HIV: No Hx Hepatitis C: No Hx MRSA: No Surgical History: cholecystectomy - Vaccination History Hx Tetanus, Diphtheria Vaccination: No Hx Influenza Vaccination: No Hx Pneumococcal Vaccination: No - Social History Hx Tobacco Use: No Hx Chewing Tobacco Use: Yes Hx Alcohol Use: Yes Hx Substance Use: No Hx Substance Use Treatment: No Hx Depression: No - Female History Patient : No - Triage Comment ED Triage Comment: Laceration to forehead, denies syncopy or LOC. Tripped over rug Family Medical History - Family History Mother Family History: Unknown Living Status: Hx Family Cancer: Yes Father Hx Family Hypertension: Yes - brother Hx Cardiac Disease: Yes - dad Hx Family Diabetes: Yes - brother Hx Family Cancer: Yes - lungs-mom; Physical Exam - Physical Exam General Appearance: Well Groomed, Well Hydrated, Well Nourished, Other - AROUSABLE Eyes, Ears, Nose, Throat Exam: PERRL/EOMI, TMs normal Neck: non-tender, full range of motion, supple, normal inspection Cardiovascular/Chest: normal peripheral pulses, no murmur Respiratory: chest non-tender, lungs clear Gastrointestinal/Abdominal: non tender, soft Back Exam: normal inspection, no CVA tenderness Extremity: non-tender, normal inspection Neurologic: cath laboratory technician II-XII nml as tested, no motor/sensory deficits, oriented x 3 - AROUSABLE FROM SLEEP (5 AM) AND IS ABLE TO ANSWER QUESTIONS CLEARLY. Skin Problem Location: scalp Skin Character: lesion Lymphatic: no adenopathy Procedures - Laceration/Wound Repair Right Face Wound Length (cm): 4 Wound's Depth, Shape: into muscle, irregular, flap, stellate, contused tissue Wound Explored: Lac is through fat, into fascia. Fascia is in tact. Irrigated w/ Saline (cc's): 250 Betadine Prep?: No - Used hibiclenz Anesthesia: Lidocaine w/ Epi Volume Anesthetic (cc's): 10 Wound Debrided: minimal Wound Repaired With: sutures Suture Size/Type: 4:0, nylon, vicryl rapide Number of Sutures: 5 Layer Closure?: Yes Deep Layer Suture Size/Type: 4:0, vicryl Number Deep Layer Sutures: 3 Sterile Dressing Applied?: Yes Splint Applied?: No Sling Applied?: No Departure - Departure Clinical Impression: Laceration of forehead, Fall Disposition: Discharge to Home or Self Care Condition: Good Departure Forms: ED Discharge - Pt. Copy, Patient Portal Self Enrollment Diet: resume usual diet Activity: increase activity as tolerated Referrals: Andre Daley MD [Primary Care Provider] - 1 Week Home Medications: Ambulatory Orders Levothyroxine Sodium [Synthroid] 50 mcg PO DAILY 09/30/15 Metoprolol Tartrate 50 mg PO DAILY 09/30/15 Tadalafil [Cialis] 20 mg PO DAILY 09/30/15 Zolpidem Tartrate [Ambien] 10 mg PO BEDTIME 09/30/15 Aspirin [Aspirin EC Low Dose] 81 mg PO 03/28/17 Additional Instructions: Please see Dr. Daley in 5-7 days for suture removal. Please discuss with Dr. Daley about possible other sleep medicine options, since the ambien has such a strong effect on him and may affect his coordination and short-term memory.
[2017-03-28 06:02] VITALS: BP 147/88; O2SAT 97
== END 2017-03-28 06:02 | disposition home or self-care (01) ==
LOC: ER 04:44
DX: S01.81XA Laceration without foreign body of other part of head, initial encounter (principal); Z23 Encounter for immunization; I48.91 Unspecified atrial fibrillation; Z79.899 Other long term (current) drug therapy; W01.190A Fall on same level from slipping, tripping and stumbling with subsequent striking against furniture, initial encounter; Y92.003 Bedroom of unspecified non-institutional (private) residence as the place of occurrence of the external cause

== ENCOUNTER → 2017-06-13 | Outpatient (CLI) | payer MEDICARE, OTHER | LOC: GMAB 11:44 | PROVIDERS: ATTEND Family Medicine | DX: R68.82 Decreased libido (principal) ==

== ENCOUNTER 2017-06-26 08:24 | Observation (INO) | payer MEDICARE, OTHER ==
--- NOTE | 2017-06-26 08:47 | ED.PDOC ---
History of Present Illness - General Chief Complaint: General Stated Complaint: back pain Time Seen by Provider: 06/26/17 08:42 Source: patient Exam Limitations: no limitations - History of Present Illness Initial Comments: Felipe Chandler 67 y/o male came to ER with worsening sharp low back pain which started Sunday stated had 3 back surgeries in the past first one was in 2014.Feels that he has lots of muscle spasm back stiff;denies bowel or bladder dysfunction had bm today. Takes Hydrocodone for his pain. Timing/Duration: other - see hpi Severity: severe Improving Factors: rest Worsening Factors: movement Associated Symptoms: denies symptoms Allergies/Adverse Reactions: Allergies Flu Virus Vaccine Allergy (Verified 06/26/17 08:38) Ketorolac Tromethamine [From Toradol] Allergy (Verified 06/26/17 08:38) Penicillin G Allergy (Verified 06/26/17 08:38) Home Medications: Ambulatory Orders Levothyroxine Sodium [Synthroid] 50 mcg PO DAILY 09/30/15 Metoprolol Tartrate 50 mg PO DAILY 09/30/15 Tadalafil [Cialis] 20 mg PO DAILY 09/30/15 Zolpidem Tartrate [Ambien] 10 mg PO BEDTIME 09/30/15 Aspirin [Aspirin EC Low Dose] 81 mg PO 03/28/17 Acetamin W/Cod #3 Tab [Tylenol w/CODEINE #3] 1 ea PO Q4HR PRN #30 tab 06/26/17 Baclofen 20 mg PO BID #30 tab 06/26/17 Review of Systems - Review of Systems Constitutional: States: no symptoms reported EENTM: States: no symptoms reported Respiratory: States: no symptoms reported Cardiology: States: no symptoms reported Gastrointestinal/Abdominal: States: no symptoms reported Genitourinary: States: no symptoms reported Musculoskeletal: States: see HPI Skin: States: no symptoms reported Neurological: States: no symptoms reported Past Medical History (General) - Patient Medical History Hx Seizures: No Hx Stroke: No Hx Dementia: No Hx Asthma: No Hx of COPD: No Hx Cardiac Disorders: Yes - a fib-paroxysmal Hx Congestive Heart Failure: No Hx Pacemaker: No Hx Hypertension: No Hx Thyroid Disease: Yes Hx Diabetes: No Hx Gastroesophageal Reflux: No Hx Renal Disease: No Hx Cancer: No Hx of HIV: No Hx Hepatitis C: No Hx MRSA: No Surgical History: other - lumbar,c-spine,knee ,neck,shoulder - Vaccination History Hx Tetanus, Diphtheria Vaccination: No Hx Influenza Vaccination: No Hx Pneumococcal Vaccination: No - Social History Hx Tobacco Use: No Hx Chewing Tobacco Use: Yes Hx Alcohol Use: Yes Hx Substance Use: No Hx Substance Use Treatment: No Hx Depression: No Hx Physical Abuse: No Hx Emotional Abuse: No - Activities of Daily Living Patient Lives Alone: No Grooming Ability: Independent Eating (Feeding) Ability: Independent Toileting Ability: Independent - Female History Patient : No Family Medical History - Family History Mother Family History: Unknown Living Status: Hx Family Diabetes: Yes - dad/brother Hx Family Cancer: Yes - lungs-mom Father Hx Family Hypertension: Yes - brother Hx Cardiac Disease: Yes - dad Hx Family Diabetes: Yes - brother Hx Family Cancer: Yes - lungs-mom; Physical Exam - Physical Exam General Appearance: Alert, Anxious, No apparent distress Eye Exam: bilateral normal Ears, Nose, Throat: hearing grossly normal, normal ENT inspection Neck: non-tender, full range of motion, supple Respiratory: chest non-tender, lungs clear, normal breath sounds Cardiovascular/Chest: normal peripheral pulses, regular rate, rhythm, no murmur Peripheral Pulses: radial,right: 2+, radial,left: 2+ Gastrointestinal/Abdominal: normal bowel sounds, non tender, soft, no organomegaly Back Exam: muscle spasm - all over lumbar spine Extremity: normal range of motion, non-tender, normal inspection, no pedal edema , no calf tenderness Neurologic: no motor/sensory deficits, alert, oriented x 3, other - DTR/knee jerk-2+ bilaterally Skin Exam: normal color, warm/dry Lymphatic: no adenopathy Progress - Progress Progress: 06/26/17 08:51 Vital Signs - 8 hr 06/26/17 08:30 Temperature 100.1 F H Pulse Rate [ 97 H pulse ox] Respiratory 20 Rate Blood Pressure 150/92 [Left Arm] O2 Sat by Pulse 97 Oximetry - Results/Orders Results/Orders: 06/26/17 08:53 URINALYSIS Stat Laboratory Results - last 24 hr 06/26/17 06/26/17 06/26/17 09:01 09:01 09:01 WBC 11.3 H RBC 4.53 L Hgb 13.5 L Hct 40.5 L MCV 89.4 MCH 29.8 MCHC 33.5 RDW 14.3 Plt Count 191 MPV 8.1 Absolute Neuts (auto) 9.40 H Absolute Lymphs (auto) 0.70 L Absolute Monos (auto) 1.10 H Absolute Eos (auto) 0.10 Absolute Basos (auto) 0.10 Neutrophils % 83.4 H Lymphocytes % 5.9 L Monocytes % 9.7 H Eosinophils % 0.5 L Basophils % 0.5 Sodium 136 Potassium 3.6 Chloride 103 Carbon Dioxide 21 Anion Gap 15.6 BUN 18 Creatinine 1.03 BUN/Creatinine Ratio 17.5 Random Glucose 123 H Serum Osmolality 275.2 Lactic Acid 1.4 Calcium 9.6 - EKG/XRAY/CT XRAY: lumbar-post op changess Departure - Departure Clinical Impression: Acute exacerbation of chronic low back pain, Muscle spasm of back Time of Disposition: 10:28 Disposition: Discharge to Home or Self Care Condition: Fair Departure Forms: ED Discharge - Pt. Copy, Patient Portal Self Enrollment Instructions: Managing Chronic Low Back Pain, Back Pain (Alternative Therapy), Low Back Pain, DI for Low Back Pain Activity: ambulate only with walker Referrals: Andre Daley MD [Primary Care Provider] - 1-2 Weeks Prescriptions: Acetamin W/Cod #3 Tab [Tylenol w/CODEINE #3] 1 ea PO Q4HR PRN #30 tab PRN Reason: Pain Baclofen 20 mg PO BID #30 tab Home Medications: Ambulatory Orders Levothyroxine Sodium [Synthroid] 50 mcg PO DAILY 09/30/15 Metoprolol Tartrate 50 mg PO DAILY 09/30/15 Tadalafil [Cialis] 20 mg PO DAILY 09/30/15 Zolpidem Tartrate [Ambien] 10 mg PO BEDTIME 09/30/15 Aspirin [Aspirin EC Low Dose] 81 mg PO 03/28/17 Acetamin W/Cod #3 Tab [Tylenol w/CODEINE #3] 1 ea PO Q4HR PRN #30 tab 06/26/17 Baclofen 20 mg PO BID #30 tab 06/26/17 Additional Instructions: Follow up with primary Md Dr. Daley 27 Jun 2017;May use alternate ice pack / warm moist pack 20 minutes each 3 x a day during waking hours only until better Continue with home medications
[2017-06-26] MEDS ORDERED: ORPHENADRINE CITRATE 30 MG/ML AMP IV ONE (08:53)
[2017-06-26] MEDS ORDERED: MORPHINE SULFATE INJ 10 MG/ML VIAL IV ONE ×3 (08:53→13:06)
[2017-06-26] MEDS ORDERED: CARISOPRODOL 350 MG TAB PO ONE (08:54)
--- NOTE | 2017-06-26 10:18 | RAD ---
EXAM DESCRIPTION: Lumbar Spine 3 Views CLINICAL HISTORY: 67 years Male, pain COMPARISON: None. FINDINGS: Three views of the lumbar spine were obtained. Postoperative changes extend from L3 through S1 including bilateral pedicle screws, posterior fixation rods, laminectomy defects and interbody spacer devices. No hardware or other surgical complication is identified. No acute vertebral body fracture or subluxation. Marginal osteophyte and syndesmophyte formation is noted at L1-2 and L2-3. Mild degenerative changes are noted in both sacroiliac joints. IMPRESSION: Postoperative and degenerative changes as detailed above. No hardware complication or acute lumbar spine abnormality. Electronically signed by: Yousuf Little MD 06/26/2017 10:17 AM CDT
--- NOTE | 2017-06-26 13:11 | HP ---
SUPERVISING PHYSICIAN: Guido Akers MD CHIEF COMPLAINT: Back pain. HISTORY OF PRESENT ILLNESS: This is a 67-year-old male patient with a history of lumbar spine surgery who came to the Emergency Room with low back pain. He states that at home, he had some hydrocodone 10 mg tablets that he has been taking intermittently for back pain, but he ran out of these. The pain started pretty much on Sunday and has progressively gotten worse. He does have an issue with back spasms and states he has actually talked to his surgeon about that and the surgeon states that he does not really know why he is having this kind of pain. His surgeon does not prescribe hydrocodone and his primary care physician, Dr. Daley, has not been prescribing hydrocodone. He states he has actually been seen by another orthopedic surgeon for some left knee pain that he plans on getting a total knee arthroplasty done and at that time of that appointment, he was given some hydrocodone. Since then, he has run out. In the Emergency Room, he was given morphine, Norflex and Soma. This relieved quite a bit of pain and prior to him coming over, he got an additional 5 mg of morphine. He states his is improved from what it was, but he is still having some pain. I asked him if he had ever taken less than hydrocodone for the pain and said he has tried to take Tylenol in the past and it has not really helped. Additionally in the Emergency Room, he had a fever of 100.4. However, he denies any fever or chills at home. He denied any cough, no dysuria, no nausea or vomiting and no symptoms to point to why he would be running a fever at this time. A urinalysis was ordered, but he has not urinated yet. PAST MEDICAL HISTORY: 1. Atrial fibrillation. 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 He denies hypertension. 2. Cervical disc disease. 3. Chronic low back pain. 4. Migraine headaches. 5. Atopic allergic dermatitis. 6. Anxiety and depression. PAST SURGICAL HISTORY: 1. Four knee surgeries and a pending left total knee arthroplasty. 2. Cholecystectomy. 3. Appendectomy. 4. Cataract surgery. 5. Rotator cuff surgeries. CURRENT MEDICATIONS: 1. Levothyroxine 50 mcg 1 tablet daily. 2. Shingrix, he got one injection and a repeat and is scheduled for 6 months. 3. Triamcinolone 0.1% cream to affected area twice a day. 4. Metoprolol 100 mg 1 tablet b.i.d. 5. Ambien 10 mg p.o. q.h.s. p.r.n. for insomnia. 6. Nitroglycerin 0.4 mg tablets repeat every 5 minutes p.r.n. for chest pain. 7. Aspirin 81 mg 1 tablet p.o. daily. 8. Cialis 5 mg 1 tablet p.o. daily. ALLERGIES: FLU VACCINE, TORADOL, PENICILLIN G. FAMILY HISTORY: Reviewed and noncontributory. SOCIAL HISTORY: The patient is and has 3 children. He does not smoke. He does dip. Social alcohol consumption. REVIEW OF SYSTEMS: CONSTITUTIONAL: No fever or chills. No recent weight loss or weight gain. HEENT: No headaches, vision changes, ear pain, nasal congestion or throat pain. RESPIRATORY: No cough, hemoptysis or pleuritic chest pain. CARDIOVASCULAR: No chest pain, palpitations or peripheral edema. GASTROINTESTINAL: No nausea, vomiting, diarrhea, constipation or abdominal pain. GENITOURINARY: No dysuria, frequency or flank pain. HEMATOLOGIC: No easy bruising and no transfusion reaction. MUSCULOSKELETAL: Positive for back pain. No join swelling or muscle cramps anywhere other than the back. ENDOCRINE: No polydipsia, polyuria, polyphagia. No heat or cold intolerance. NEUROLOGIC: No syncope, paresthesias, seizures. PHYSICAL EXAMINATION: VITAL SIGNS: Blood pressure 139/88. Heart rate 89. Respiratory rate 20. Temperature 100.4. Oxygen saturation 77%. GENERAL: Mr. Chandler is a 67-year-old male patient who is in mild distress secondary to pain. HEENT: Normocephalic, atraumatic. Pupils are equal and reactive. No nasal drainage. Throat with moist mucosa. NECK: Supple. Midline trachea. No jugular venous distention. CHEST: Symmetrical with equal rise and fall of the chest with inspiration and expiration. Lung sounds are clear to auscultation bilaterally. CARDIOVASCULAR: Regular rate and rhythm. Normal S1, S2. ABDOMEN: Soft. Positive bowel sounds. No tenderness to palpation. GENITOURINARY: Deferred. EXTREMITIES: Lower extremities with no edema. Pulses 2+. Capillary refill is less than 2 seconds. NEUROLOGIC: The patient is alert and oriented. Moves all extremities. Extraocular movements are intact. BACK: Point tenderness to the lumbosacral area. There is no edema, no erythema noted at this time. LABORATORY: White count 11.3, hemoglobin 13.5, hematocrit 40.5, platelet count 191. Chemistries unremarkable. ASSESSMENT: 1. Fever with leukocytosis 2. Intractable back pain, acute on chronic. 3. History of atrial fibrillation with a controlled rate at this time. 4. History of hypothyroidism. PLAN: I will get a urinalysis as well as a CRP, ESR, and blood cultures. He has no other symptoms other than back pain, so cannot rule out hardware infection or localized infectious process. Lumbar spine x-rays do not show any significant abnormalities. It appears that the hardware is in place. He does have a history of chronic pain and it appears that he has just run out of some medications that were controlling the pain. We will start him on some Ultracet and some Flexeril to see if this helps.He has had no other symptoms. I will check his thyroid studies in the morning along with his labs to see how they look and hopefully we can get his back pain under control. #[id number] [facility]
[2017-06-26] MEDS ORDERED: SODIUM CHLORIDE 0.9% (FLUSH) 10 ML SYG IV PRN (13:38)
[2017-06-26] MEDS ORDERED: IV SET AND CAP CHANGE INJ INJ SCH (14:00)
[2017-06-26] MEDS: CYCLOBENZAPRINE HCL 10 MG TAB PO SCH ×2 (14:05→22:42)
[2017-06-26] MEDS: MORPHINE SULFATE INJ 10 MG/ML VIAL IV PRN ×3 (14:35→22:46)
[2017-06-26] MEDS: traMADol 37.5MG/APAP 325MG 1 EA TAB PO PRN ×2 (17:34→23:35)
[2017-06-26] MEDS: METOPROLOL SUCCINATE XL 100 MG TAB PO SCH (20:56)
[2017-06-26] MEDS ORDERED: ZOLPIDEM TARTRATE 10 MG TAB PO SCH (21:00)
[2017-06-27] MEDS: MORPHINE SULFATE INJ 10 MG/ML VIAL IV PRN ×4 (03:07→14:49)
[2017-06-27] MEDS ORDERED: OMEPRAZOLE CAP 20 MG CAP ONE (04:16)
[2017-06-27] MEDS ORDERED: LEVOTHYROXINE SODIUM 0.025 MG TAB ONE (04:16)
[2017-06-27] MEDS ORDERED: OMEPRAZOLE CAP 20 MG CAP PO SCH (06:30)
[2017-06-27] MEDS ORDERED: LEVOTHYROXINE SODIUM 0.025 MG TAB PO SCH (06:30)
[2017-06-27] MEDS: CYCLOBENZAPRINE HCL 10 MG TAB PO SCH ×2 (06:33→13:20)
[2017-06-27] MEDS: traMADol 37.5MG/APAP 325MG 1 EA TAB PO PRN ×2 (06:40→12:42)
[2017-06-27] MEDS ORDERED: METOPROLOL TARTRATE 50 MG TAB PO SCH (09:00)
[2017-06-27] MEDS ORDERED: OMEPRAZOLE 10 MG PO SCH (09:00)
[2017-06-27] MEDS: METOPROLOL SUCCINATE XL 100 MG TAB PO SCH (09:11)
--- NOTE | 2017-06-27 09:20 | PN ---
SUPERVISING PHYSICIAN: Guido Akers MD DATE: 06/27/17 SUBJECTIVE: The patient is still having back pain. He states the Ultracet is not really too helpful, but he says the morphine he is getting for breakthrough is helping at this point. His white count is improved and he has not run a fever for the last 24 hours or so. OBJECTIVE: VITAL SIGNS: Blood pressure 121/74. Heart rate 67. Respiratory rate 18. Temperature 98.5. Oxygen saturation 97%. GENERAL: Mr. Chandler is a 67-year-old male patient in no active distress currently. NEUROLOGIC: Alert and oriented. LUNGS: Clear to auscultation bilaterally. CARDIOVASCULAR: Regular rate and rhythm. Normal S1, S2. ABDOMEN: Soft. Positive bowel sounds. EXTREMITIES: Lower extremities with no edema. BACK: Still has point tenderness, but appears to be a little bit improved from yesterday. LABORATORY: Sodium 134, potassium 3.8, chloride 100, CO2 25, BUN 14, creatinine 1.08, glucose 98, calcium 9.5, TSH 3.85, free T4 0.76. White blood cell count 10.9, hemoglobin 13.0, hematocrit 38.9, platelet count 192. ASSESSMENT: 1. Fever with leukocytosis 2. Intractable back pain, acute on chronic. 3. History of atrial fibrillation. 4. History of hypothyroidism. PLAN: Atrial fibrillation and hypothyroidism currently are well treated. Given the patient's continued pain, I discussed with Dr. Akers and we are actually to do an MRI with and without contrast. I spoke with Dr. Gong in radiology about this as well. We will rule out discitis. If there is no evidence of any infectious process at this time, then we will discharge on Ultracet and Flexeril for him to followup with his surgeon. I will also check a magnesium level to ensure that this is within normal limits and not a cause for potential muscle spasms. #[id number] [facility]
[2017-06-27 10:22] VITALS: O2SAT 98
--- NOTE | 2017-06-27 12:15 | MRI ---
EXAM DESCRIPTION: Lumbar Spine w/wo Contrast CLINICAL HISTORY: rule out discitis, has hardware in place. Low back pain COMPARISON: October 30, 2016. X-rays June 26, 2017 TECHNIQUE: Multiplanar MRI of the lumbar spine was performed with and without contrast. FINDINGS: There is metallic susceptibility artifact from bilateral pedicle screw and vertical giovanna fixation from L3 through S1. Hardware at L3 is new from previous. Interbody implants are seen in the disc spaces from L3 through S1. Laminectomy changes from L3 through L5 are noted. There is patchy bone marrow edema and enhancement in the endplates around the L2-3 disc space towards the left. No fluid in the disc space or endplate destructive changes are identified. There is curvature of the mid to upper lumbar spine with convexity towards the left. Conus medullaris terminates at T12-L1 and is unremarkable. Mild to moderate anterior disc bulging and marginal endplate osteophytes are seen throughout the visualized lower thoracic to lumbar spine. Visualized intra-abdominal retroperitoneal structures show no acute findings. There is increased T2 signal and enhancement in the left psoas muscle on the level of L2 sacral region. No abnormal fluid collections are seen in the muscle. Presumed bone graft donor site from the left iliac region is seen. L1-2 Mild disc desiccation and disc space narrowing is seen. Mild facet arthropathy. No significant spinal canal stenosis or foraminal encroachment. L2-3 Disc desiccation and moderate diffuse disc space narrowing is worsened from previous exam. The presumed left disc extrusion posterior to the L2 to vertebral body is not seen on today's exam. There is trace retrolisthesis of L2 on L3. The spinal canal is not well visualized because of metallic susceptibility artifact. The canal is not visualized on postcontrast fat-saturated images limiting evaluation. Sagittal images show at least mild spinal canal stenosis with thecal sac measuring 9 mm AP centrally. There also appears to be canal stenosis on the transaxial images. There is moderate to severe left and moderate right foraminal encroachment seen. L3-4 Interval postsurgical changes from laminectomy and presumed resection of the ligamentum flavum. There is enhancing epidural scar tissue surrounding the thecal sac which is also not well visualized because of metallic susceptibility artifact. There is at least moderate left and mild right foraminal encroachment secondary to disc osteophytic ridging and facet hypertrophy. L4-5 The interbody implant at this level appears to extend posteriorly beyond the endplate margins by 6 to 7 mm similar to previous exam resulting in moderate to severe encroachment on the exiting right L4 nerve root in the neural foramen. This area is moderately obscured from metallic susceptibility artifact. There is question of fluid signal to the right of the thecal sac anteriorly on image 9 of series 501 measuring 7.5 x 13 mm similar to previous exam which could represent postop hematoma or seroma versus small CSF leak or pseudomeningocele. The nerve roots appear clumped in the central aspect of the spinal canal compared to prior exam. L5-S1 Interbody implant extends to the margin of the endplates in the right lateral recess unchanged from previous. No obvious spinal canal stenosis seen at this level. There is at least moderate right greater than left foraminal encroachment. IMPRESSION: Pedicle screw bilateral vertical giovanna fixation from L3 to S1 is seen securing visualization of the spinal canal and neural foramen. L3-L5 laminectomy changes are seen. There is moderate bone marrow edema in the endplates around the disc space towards the left at L2-3 without significant fluid in the disc space. This could represent Modic type I degenerative endplate signal changes versus early discitis osteomyelitis. There is at least mild spinal canal stenosis at L2-3 with moderate to severe left and moderate right foraminal encroachment. This level is difficult to evaluate because of metallic susceptibility artifact securing visualization. There is clumping of the nerve roots in the central aspect of the thecal sac from L3 through L4 that could represent arachnoiditis or changes related to spinal canal stenosis. Posterior positioning of the interbody implant on the right at L4-5 results in encroachment on the exiting L4 nerve root. Question fluid collection or pseudomeningocele anterior to the right thecal sac at L4-5. Electronically signed by: Alex Johnson MD 06/27/2017 12:13 PM CDT
[2017-06-27] MEDS ORDERED: MAGNESIUM SULFATE PREMIX 2GM 2 GM in PREMIX BAG 1 BAG IVPB ONE (14:03)
[2017-06-27 14:31] VITALS: BP 138/77; TEMP 98
[2017-06-27] MEDS ORDERED: MAGNESIUM SULFATE PREMIX 2GM 50 ML IVPB ONE (14:34)
[2017-06-27] MEDS ORDERED: CEFEPIME 2 GM in SODIUM CHL 0.9% 50ML MIN-BAG+ 50 ML IVPB SCH (15:00)
[2017-06-27] MEDS ORDERED: VANCOMYCIN PER PHARMACY INJ SCH (15:00)
[2017-06-27] MEDS ORDERED: CEFEPIME 2 GM VIAL IVPB ONE (15:22)
[2017-06-27] MEDS ORDERED: SODIUM CHL 0.9% 50ML MIN-BAG+ 50 ML IVPB ONE (15:22)
[2017-06-27] MEDS ORDERED: VANCOMYCIN HCL INJ 1,000 MG in SODIUM CHLORIDE 0.9% 250ML 250 ML IVPB SCH (16:00)
--- NOTE | 2017-06-27 23:39 | DS ---
SUPERVISING PHYSICIAN: Guido Akers M.D. DISCHARGE DIAGNOSIS: 1. Fever with leukocytosis. 2. Intractable back pain, acute on chronic. 3. New finding of discitis/osteomyelitis via MRI. 4. History of atrial fibrillation with is currently controlled. 5. History of hypothyroidism, controlled. HOSPITAL COURSE: This is a 67 year-old male patient who came to the hospital with intractable back pain. He has a history of 3 back surgeries for which it sounds like he has had progressive adding of hardware throughout those 3 surgeries. Anyhow, he has been having some chronic pain issues. It sounds like he actually had some Hydrocodone at home but has run out. Once he ran out , he did not have any significant pain control medications, so he came into the Emergency Room. In the E. R., he was found to have a fever of 100.4 and an elevated white count of 11.3, however, there was no visible source of infection. His urinalysis was normal. Chest x-ray was clear. He had no other symptoms other than the back pain. Blood cultures were drawn but he was not initially started on antibiotics due to lack of source. This morning I spoke with the radiologist regarding potential MRI due to the fact he is having back pain. I had concern for an infectious process around the hardware possibly. In speaking with him, he said an MRI with and without contrast would be the best way to visualize the structures. Therefore he did have the MRI. On the MRI he was shown to have moderate bone marrow edema in the end plates around the disc space towards L2-L3 without significant fluid accumulation. This was concerning for discitis and osteomyelitis. He had some other abnormalities that appeared to be chronic in nature, but another concern was the posterior positioning of the interbody implant on the right at L4-L5 that appeared to have an encroachment on the exiting L4 nerve root. These appear to be consistent with his pain. Additionally he had a clumping of nerve roots in the central aspect of the thecal sac from L3 through L4 that potentially represented arachnoiditis or changes related to the spinal canal stenosis, however he had no peripheral paresthesias, just the pain in the back. Due to these findings I contacted Dr. Hahn from [place]. She is with Infectious Disease and I discussed the findings of discitis and osteomyelitis at the L2-L3 level. She states she would definitely consult on the case and suggested transfer to [place]. I discussed the case with the patient and his regarding needing to go to [place] for a higher level of care and they were in agreement. Therefore the patient was transferred to [place] without incident. Prior to transfer, I did order some Cefepime as well as vancomycin to be started as soon as possible. #[id number] [facility]
== END 2017-06-27 15:56 | disposition short-term general hospital (02) ==
LOC: ER 08:24 → MS 13:09
PROVIDERS: ADMIT Nurse Practitioner; ATTEND Nurse Practitioner
DX: M46.46 Discitis, unspecified, lumbar region (principal); M46.26 Osteomyelitis of vertebra, lumbar region; D72.829 Elevated white blood cell count, unspecified; R50.9 Fever, unspecified; M47.816 Spondylosis without myelopathy or radiculopathy, lumbar region; M48.061 Spinal stenosis, lumbar region without neurogenic claudication; I48.91 Unspecified atrial fibrillation; E03.9 Hypothyroidism, unspecified; G89.29 Other chronic pain; M62.830 Muscle spasm of back; F17.220 Nicotine dependence, chewing tobacco, uncomplicated; Z79.891 Long term (current) use of opiate analgesic; Z79.82 Long term (current) use of aspirin; Z79.899 Other long term (current) drug therapy; Z88.0 Allergy status to penicillin; Z88.6 Allergy status to analgesic agent; Z88.7 Allergy status to serum and vaccine
CPT/HCPCS: 96365; 96375 ×2; 96376 ×3; J2270 ×9; J2360; J0692; J3475; J7050; 80048 ×2; 80307; 36415 ×6; 87077; 87186; 81001; 86140; 85025 ×2; 87040 ×2; 84439; 83735; 85651; 84443; 83605; 72100; 99285; 72158; G0378

== ENCOUNTER → 2018-01-07 | Outpatient (CLI) | payer MEDICARE, OTHER ==
--- NOTE | 2018-01-08 09:08 | MRI ---
EXAM DESCRIPTION: Lumbar Spine w/wo Contrast: Magnetic Resonance Imaging. CLINICAL HISTORY: DISCITIS COMPARISON: MRI scan of the lumbar spine without and with gadolinium IV contrast 06/27/2017. TECHNIQUE: Multiplanar, MRI, multiple standard sequences, without and with 20 mL Gadolinium IV contrast, lumbar spine. No adverse reactions. Technically difficult study due to significant metallic susceptibility artifact on the study. FINDINGS: Posterior transpedicular fusion bilaterally L3-S1 with unilateral connecting rods. Interbody fusion devices at each level with posterior location at L4-5 and L5-S1. No fluid collection around the hardware or enhancing fluid collection. No abnormal enhancement of the thecal sac or the proximal nerve roots. No abnormal extradural enhancing soft tissue mass or enhancing fluid collection. L5-S1: Moderate disc space loss with Modic type II endplate reactive changes mostly posterior. No change. Interbody fusion device abutting the right posterior margin of the endplates stable. Canal narrowing and moderate narrowing of the foramina bilaterally. Normal contrast enhancement in the disc space. L4-5: Moderate loss of disc space. Interbody fusion device right posterior aspect and slightly protruding into the canal proximally 6 mm, stable and also encroaching on the exiting right L4 nerve in the base of the foramen. Moderate narrowing of the left foramen. No encroachment on the thecal sac. No abnormal disc space enhancement. No canal stenosis. Fluid collection seen on the prior study at this level is no longer present with no abnormal enhancement. There is no clumping of nerve roots in the thecal sac as was seen on the prior study. No fluid or enhancement around the hardware. L3-4: Interbody fusion device in the central disc space slightly to the right of midline. Modic type II endplate reactive changes. Stable. Posterior bulging osteophyte in the midline abutting the thecal sac No encroachment on the thecal sac with normal enhancement. No enhancement in the disc space. Moderate narrowing of the foramina more on the right than the left. Stable. No fluid or enhancement around the hardware. L2-3: Modic type I endplate reactive changes around the disc space which is minimally to moderately reduced. Hyperintense T1 and T2 signal in the right side of the disc space. No enhancement. Modic type I endplate reactive changes. The screws bilaterally course just under the superior L3 endplate. Moderate narrowing of the canal abutting the thecal sac more on the right than the left. Partial left laminectomy has been performed prior study. Minimal widening of the left facet. Minimal enhancement of the granulation tissue posterior soft tissues. No enhancement in the thecal sac or epidural space. No fluid collection. Minimal right foraminal stenosis and mild left foraminal narrowing. L1-2: Anterior disc bulge. Minimal left posterior disc bulge but no herniation. Normal contrast enhancement. Minimal hypertrophy of the flavum ligament. Mild to moderate canal narrowing. Facets are negative with normal enhancement. Bilateral mild to moderate foraminal narrowing more left than right. No abnormal enhancement. Stable since the prior study. T12-L1: No significant disc desiccation no bulging. Disc space maintained. Normal contrast enhancement Conus terminates at L1. Normal enhancement of the included cord and conus. Canal and foramina are patent. Posterior elements are unremarkable. Normal contrast enhancement. Stable since the prior study. Stable minimal lumbosacral levoscoliosis. Vertebral bodies are not compressed at any level. Otherwise normal marrow signal in the vertebral bodies and the posterior elements. No other abnormal Contrast enhancement. Paravertebral soft tissues no fluid collection.Perivertebral contrast enhancement no abnormal sites. IMPRESSION: 1. No abnormal fluid collection in the spinal canal or extraspinal. Normal contrast enhancement in the discs with no abnormal enhancement in the disc spaces or endplates. No recurrent discitis is seen. No abnormal enhancement around the hardware. Technically difficult study due to large amount of magnetic susceptibility artifact especially on T1 fat sat images. 2. Minimal right foraminal stenosis and mild left foraminal narrowing stable at L2-3. Stable since the prior study. Correlate for right L2 radiculopathy. L3 screws are again seen to be just below the superior L3 endplate. Partial left laminectomy. Posterior enhancement or granulation tissues. 3. Interbody fusion device at L4-5 slightly protrudes into the right ventral canal and right foraminal base encroaching on the right L4 nerve root. Stable since the prior study. 4. Spondylosis again noted at every level. Stable since the prior study. Foraminal narrowing at multiple levels as noted. Stable since the prior study. Electronically signed by: Paul Kumari MD 01/08/2018 9:07 AM [facility]
== END ==
LOC: MRI 09:00
PROVIDERS: ATTEND Emergency Medicine
DX: M54.16 Radiculopathy, lumbar region (principal); M47.896 Other spondylosis, lumbar region; Z98.1 Arthrodesis status

== ENCOUNTER 2018-01-15 15:55 | Observation (INO) | payer MEDICARE, OTHER ==
[2018-01-15] MEDS ORDERED: SODIUM CHLORIDE 0.9% 1000ML 1,000 ML IVS ONE (16:17)
[2018-01-15] MEDS ORDERED: SODIUM CHLORIDE 0.9% (FLUSH) 10 ML SYG IV PRN ×2 (16:17→20:37)
[2018-01-15] MEDS ORDERED: ONDANSETRON INJ 4 MG/2 ML VIAL IV ONE (16:17)
--- NOTE | 2018-01-15 16:45 | ED.PDOC ---
History of Present Illness - General Chief Complaint: GI Problem Stated Complaint: Nausea/ Vomitting Time Seen by Provider: 01/15/18 16:14 Information Source: patient, family Exam Limitations: no limitations - History of Present Illness Initial Comments: PT PRESENTS TO THE ED WITH COMPLAINT OF NAUSEA, VOMITING, AND LOWER ABDOMINAL PAIN THAT BEGAN SHORTLY AFTER HAVING A HALO PROCEDURE DONE FOR BARRETTS ESOPHAGUS. Abdominal Pain Onset Location: generalized abdomen Quality: moderate Timing/Duration: 24 hours Worsening Factors: eating Associated Symptoms: nausea/vomiting Review of Systems - Review of Systems Constitutional: Denies: chills, fever EENTM: Denies: nose congestion, throat pain Respiratory: Denies: cough, short of breath Cardiology: Denies: chest pain, palpitations Gastrointestinal/Abdominal: States: see HPI, abdominal pain, nausea, vomiting Genitourinary: Denies: dysuria, frequency Musculoskeletal: Denies: joint pain, joint swelling Past Medical History (General) - Patient Medical History Hx Seizures: No Hx Stroke: No Hx Dementia: No Hx Asthma: No Hx of COPD: No Hx Cardiac Disorders: Yes - a fib-paroxysmal Hx Congestive Heart Failure: No Hx Pacemaker: No Hx Hypertension: No Hx Thyroid Disease: Yes Hx Diabetes: No Hx Gastroesophageal Reflux: No Hx Renal Disease: No Hx Cancer: No Hx of HIV: No Hx Hepatitis C: No Hx MRSA: No - Vaccination History Hx Tetanus, Diphtheria Vaccination: No Hx Influenza Vaccination: No Hx Pneumococcal Vaccination: No - Social History Hx Tobacco Use: No Hx Chewing Tobacco Use: Yes Hx Alcohol Use: No Hx Substance Use: No Hx Substance Use Treatment: No Hx Depression: No Hx Physical Abuse: No Hx Emotional Abuse: No - Female History Patient : No Family Medical History - Family History Mother Family History: Unknown Living Status: Hx Family Diabetes: Yes - dad/brother Hx Family Cancer: Yes - lungs-mom Father Living Status: Hx Family Hypertension: Yes - brother Hx Cardiac Disease: Yes - dad Hx Family Diabetes: Yes - brother Hx Family Cancer: Yes - lungs-mom; Physical Exam - Physical Exam General Appearance: Alert, Obvious distress, Well Developed, Well Groomed Eyes, Ears, Nose, Throat Exam: normal ENT inspection Neck: normal inspection Respiratory: lungs clear, normal breath sounds, no respiratory distress Cardiovascular/Chest: regular rate, rhythm, no edema Gastrointestinal/Abdominal: soft, tenderness - DIFFUSE Extremity: normal inspection Neurologic: alert, normal mood/affect, oriented x 3 Skin Exam: diaphoresis, pallor Progress - Progress Progress: 01/15/18 17:45 PT REPORTS IMPROVEMENT IN NAUSEA BUT CONTINUES TO COMPLAIN OF PAIN, TORADOL, MORPHINE ORDERED. 01/15/18 18:48 PT RESTING COMFORTABLY, ABLE TO TOLERATE GATORADE IN THE ED. REPORTS PAIN IS IMPROVED. WOULD RATHER STAY OVERNIGHT FOR IV FLUIDS AND OBSERVATION. - Results/Orders Results/Orders: Laboratory Tests 01/15/18 01/15/18 16:30 16:30 WBC 13.4 H RBC 5.32 Hgb 15.8 Hct 48.7 MCV 91.7 MCH 29.6 MCHC 32.4 L RDW 13.5 Plt Count 184 MPV 8.5 Absolute Neuts (auto) 11.60 H Absolute Lymphs (auto) 0.60 L Absolute Monos (auto) 1.10 H Absolute Eos (auto) 0.00 Absolute Basos (auto) 0.00 Neutrophils % 86.9 H Lymphocytes % 4.7 L Monocytes % 7.9 Eosinophils % 0.2 L Basophils % 0.3 Sodium 139 Potassium 4.1 Chloride 101 Carbon Dioxide 27 Anion Gap 15.1 BUN 19 H Creatinine 1.18 BUN/Creatinine Ratio 16.1 Random Glucose 133 H Serum Osmolality 281.7 Calcium 9.9 Total Bilirubin 0.9 Direct Bilirubin 0.2 Indirect Bilirubin 0.7 AST 27 ALT 17 Alkaline Phosphatase 174 H Serum Total Protein 8.3 H Albumin 4.6 Lipase 18 L - EKG/XRAY/CT EKG: Andres - @57BPM, NL INTERVALS, LAD, Sinus, no ST T wave changes, Unchanged from - 08/30/16 Departure - Departure Clinical Impression: Abdominal pain, Nausea & vomiting, Volume depletion Time of Disposition: 18:51 Disposition: Admit Patient Condition: Fair Departure Forms: ED Discharge - Pt. Copy, Patient Portal Self Enrollment Referrals: DENISSE MEDRANO [Primary Care Provider] - 1-2 Weeks Home Medications: Ambulatory Orders Levothyroxine Sodium [Synthroid] 50 mcg PO DAILY 09/30/15 Tadalafil [Cialis] 20 mg PO DAILY PRN 09/30/15 Zolpidem Tartrate [Ambien] 10 mg PO BEDTIME 09/30/15 Acetamin W/Cod #3 Tab [Tylenol w/CODEINE #3] 1 ea PO Q4HR PRN #30 tab 06/26/17 Baclofen 20 mg PO BID #30 tab 06/26/17 Metoprolol Succinate [Metoprolol Succinate ER] 100 mg PO BID 06/26/17 Omeprazole 40 mg PO BID 06/26/17 Decision To Admit - Decistion To Admit Decision to Admit Reason: Admit from ER Decision to Admit Date: 01/15/18 Decision to Admit Time: 18:52 - CASE DISCUSSED WITH ROMMEL MORENO NP WHO AGREES TO ADMIT
[2018-01-15] MEDS ORDERED: MORPHINE SULFATE INJ 10 MG/ML VIAL IV ONE (17:40)
--- NOTE | 2018-01-15 18:09 | CT ---
EXAM DESCRIPTION: Abdomen/Pelvis w/Contrast CLINICAL HISTORY: 67 years Male DIFFUSE ABD TENDERNESS, RECENT HALO PROCEDURE COMPARISON: 11/04/2016 TECHNIQUE: Contiguous axial images obtained through the abdomen and pelvis following IV contrast. Reformatted images obtained. This exam was performed according to our department optimization program which includes automated exposure control, adjustment of the mA and/or kv according to patient size and/or use of iterative reconstruction technique. FINDINGS: There is wall thickening in the distal esophagus likely related to edema and inflammation from recent halo procedure. Small hiatal hernia may be present. Liver spleen and pancreas appear unremarkable. No adrenal masses. There are bilateral renal cysts. Small focus of calcification or nodularity in the cyst on the left which is unchanged from the prior study. No hydronephrosis. The gallbladder is surgically absent No aneurysmal dilatation of the aorta. Vascular calcification is present. No bowel obstruction. The appendix is nonvisualized. Postsurgical changes are seen in the right lower quadrant. There are changes of laminectomy and spinal fusion extending from L3 to S1.. No significant free fluid noted. IMPRESSION: There is wall thickening in the distal esophagus likely related to edema and inflammation from recent halo procedure. This extends into the proximal aspect of the stomach Diverticulosis Postsurgical changes in the lumbar spine Electronically signed by: Jackelin Argueta MD 01/15/2018 6:08 PM EDITOR INDEX
[2018-01-15] MEDS ORDERED: PANTOPRAZOLE INJECTION 40 MG in SODIUM CHLORIDE 0.9% 100ML 100 ML IVPB ONE (20:39)
[2018-01-15] MEDS ORDERED: SODIUM CHLORIDE 0.9% 1000ML 1,000 ML IVS PRN (20:42)
[2018-01-15] MEDS ORDERED: levoFLOXacin 750MG IV 750 MG in PREMIX BAG 1 BAG IVPB ONE (20:59)
[2018-01-15] MEDS ORDERED: IV SET AND CAP CHANGE INJ INJ SCH (21:00)
--- NOTE | 2018-01-15 21:01 | HP ---
SUPERVISING PHYSICIAN: Mike Garcia M.D. CHIEF COMPLAINT: Nausea and vomiting with lower abdominal pain. HISTORY OF PRESENT ILLNESS: This is a 67 year-old male patient who underwent a Halo procedure for Glez's esophagus yesterday. Apparently he was noted on EGD to have that in [place] but was referred to [place], [place] to have the Halo procedure done. Shortly after the procedure he the nausea, vomiting and abdominal discomfort. His and he state that he was not discharged with any medications, however there are discharge instructions for Carafate, liquid lidocaine, Prilosec as well as liquid hydrocodone. Anyway he came into the Emergency Room with those complaints. Dr. Schmidt in the Emergency Room actually did a CT scan of the abdomen and pelvis to ensure that there was not any rupture or any apparent complications and it did show distal esophagus wall thickening that was related to the Halo procedure, but no other apparent complications. His labs showed a mild elevation in his white count at 13.4. Chemistry shows an elevated BUN of 19. He was given pain medication as well as antiemetics in the Emergency Room and actually got to the point where he could start to drink Gatorade. However, he was referred for observation. At time of examination the patient is alert and oriented. He complains of some discomfort but no further nausea. PAST MEDICAL HISTORY: 1. Atrial fibrillation. 2. Cervical disc disease. 3. Chronic low back pain. 4. Migraine headaches. 5. Atopic allergic dermatitis. 6. Anxiety. 7. Depression. 8. He actually had osteomyelitis and discitis back in June of this year for which he had surgery and antibiotic therapy for. PAST SURGICAL HISTORY: 1. Discectomy. 2. Four knee surgeries. 3. Pending left total knee arthroplasty. 4. Cholecystectomy. 5. Appendectomy. 6. Cataract surgery. 7. Rotator cuff surgery. CURRENT MEDICATIONS: Please see the home medication reconciliation record as I do not have an accurate listing in the computer at this time. ALLERGIES: FLU VACCINE, TORADOL AND PENICILLIN G. FAMILY HISTORY: Reviewed and noncontributory. SOCIAL HISTORY: with 3 children. No smoking. He does dip. Socially drinks alcohol. No illicit drugs. REVIEW OF SYSTEMS: CONSTITUTIONAL: No fever or chills. No recent weight loss or weight gain. HEENT: No headaches, vision changes, ear pain, nasal congestion or throat pain. RESPIRATORY: No cough, hemoptysis or pleuritic chest pain. CARDIOVASCULAR: No chest pain, palpitations or peripheral edema. GASTROINTESTINAL: Positive for nausea and vomiting. No diarrhea. No constipation. Positive for abdominal pain. As noted above, the recent Halo procedure for the Glez's esophagus. GENITOURINARY: No dysuria, frequency or flank pain. HEMATOLOGIC: No easy bruising or transfusion reaction. MUSCULOSKELETAL: Positive for back pain. No joint pain or muscle cramps anywhere other than the chronic back pain. ENDOCRINE: No polydipsia, polyuria or polyphagia. No heat or cold intolerance. NEUROLOGIC: No syncope, paresthesias or seizures. PHYSICAL EXAMINATION: VITAL SIGNS: Blood pressure shows blood pressure 170/81, heart rate 63, respiratory rate 17, temperature 100.3, O2 saturation 94%. GENERAL: Mr. Chandler is a 67 year-old male patient in no active distress currently. HEENT: Head is normocephalic and atraumatic. Eyes: Pupils are equal and reactive. Nose: No drainage. Throat: With moist mucosa. NECK: Supple. Midline trachea. No jugular venous distention. CHEST: Symmetrical with equal rise and fall of the chest with inspiration and expiration. Lung sounds are clear to auscultation and percussion bilaterally. CARDIOVASCULAR: Regular rate and rhythm. Normal S1 and S2. ABDOMEN: Soft. Positive bowel sounds. He does have some epigastric tenderness to palpation. GENITOURINARY: Exam is deferred. EXTREMITIES: Lower extremities with no edema. NEUROLOGIC: The patient is alert and oriented. LABORATORY: Labs and films were reviewed and discussed in the History of Present Illness. ASSESSMENT: 1. Nausea and vomiting with abdominal pain likely related to post Halo procedure. 2. Leukocytosis with fever, unknown reason at this time. 3. History of atrial fibrillation but currently with a controlled rate. PLAN: At this time the patient will be admitted for pain control, antiemetics as well as IV fluids. Additionally he has the leukocytosis with fever and I am not really sure of the source. I am going to place him on some Levaquin and Flagyl and recheck his labs in the morning as well. DVT prophylaxis with early ambulation and I placed him on an IV proton pump inhibitor as well. I have ordered liquid Carafate as well as liquid hydrocodone. These are actually listed on his post-procedure instructions. #[id number] [facility]
[2018-01-15] MEDS ORDERED: metroNIDAZOLE IV PREMIX 500MG 100 ML IVPB ONE (22:32)
[2018-01-15] MEDS ORDERED: PANTOPRAZOLE SODIUM IV 40 MG VIAL IV ONE (22:33)
[2018-01-15] MEDS ORDERED: SODIUM CHLORIDE 0.9% 100ML 100 ML IVPB ONE (22:34)
[2018-01-15] MEDS: SUCRALFATE 1 GM/10 ML 1 GM UD PO SCH (22:57)
[2018-01-15] MEDS: HYDROcodone/APAP 5MG/217MG LIQ 10 ML UD PO SCH (22:57)
[2018-01-15] MEDS: metroNIDAZOLE IV PREMIX 500MG 500 MG in PREMIX BAG 1 BAG IVPB SCH (23:28)
[2018-01-16] MEDS: HYDROcodone/APAP 5MG/217MG LIQ 10 ML UD PO SCH ×4 (02:57→11:04)
[2018-01-16] MEDS ORDERED: metroNIDAZOLE IV PREMIX 500MG 100 ML IVPB ONE (03:12)
[2018-01-16] MEDS: metroNIDAZOLE IV PREMIX 500MG 500 MG in PREMIX BAG 1 BAG IVPB SCH (05:05)
[2018-01-16] MEDS ORDERED: PANTOPRAZOLE SODIUM IV 40 MG VIAL IV SCH (06:30)
[2018-01-16] MEDS: SUCRALFATE 1 GM/10 ML 1 GM UD PO SCH ×2 (08:59→11:04)
[2018-01-16] MEDS ORDERED: LEVOTHYROXINE SODIUM 0.025 MG TAB ONE (10:00)
[2018-01-16 10:23] VITALS: BP 170/81; TEMP 98.8; O2SAT 99
[2018-01-16] MEDS ORDERED: HYDROcodone 10MG/APAP 325MG 1 EA TAB PO PRN (10:48)
[2018-01-16] MEDS ORDERED: CETIRIZINE HCL 10 MG TAB PO SCH (11:00)
[2018-01-16] MEDS ORDERED: METOPROLOL SUCCINATE XL 100 MG TAB PO SCH (11:00)
[2018-01-16] MEDS ORDERED: LEVOTHYROXINE SODIUM 50 MCG PO SCH (11:00)
[2018-01-16] MEDS ORDERED: fentaNYL PATCH 100MCG/HR 1 EA PATCH TD SCH (11:00)
[2018-01-16] MEDS ORDERED: NON-FORMULARY MEDICATION 1 EA MIS (Omeprazole [Omeprazole] 40 MG) PO SCH (11:00)
[2018-01-16] MEDS ORDERED: GABAPENTIN 300 MG CAP PO SCH (11:00)
[2018-01-16] MEDS ORDERED: CEPHALEXIN MONOHYDRATE 500 MG CAP PO SCH (11:00)
[2018-01-16] MEDS ORDERED: OMEPRAZOLE CAP 20 MG CAP ONE (11:02)
[2018-01-16] MEDS ORDERED: SUCRALFATE 1 GM TAB PO SCH (11:30)
[2018-01-16] MEDS ORDERED: OMEPRAZOLE CAP 20 MG CAP PO SCH (21:00)
[2018-01-17] MEDS ORDERED: LEVOTHYROXINE SODIUM 0.025 MG TAB PO SCH (09:00)
--- NOTE | 2018-01-21 08:48 | DS ---
SUPERVISING PHYSICIAN: Ortiz Garcia MD ADMISSION DIAGNOSIS: 1. Nausea and vomiting with abdominal pain likely related to post Halo procedure. 2. Leukocytosis with fever, unknown reason at this time. 3. History of atrial fibrillation but currently with a controlled rate. DISCHARGE DIAGNOSIS: 1. Nausea and vomiting secondary to post Halo procedure, now advancing diet with no apparent discomfort or return of nausea and vomiting. 2. Leukocytosis with fever, likely related to recent Halo procedure and inflammatory response, but no signs of infection at discharge. 3. History of atrial fibrillation but currently with a controlled rate at discharge. REASON FOR HOSPITALIZATION: This is a 67-year-old male patient who underwent a Halo procedure for Glez's esophagus yesterday. Apparently he was noted on EGD to have that in [place] but was referred to [place], [place] to have the Halo procedure done. Shortly after the procedure he the nausea, vomiting and abdominal discomfort. His and he state that he was not discharged with any medications, however there are discharge instructions for Carafate, liquid lidocaine, Prilosec as well as liquid hydrocodone. Anyway he came into the Emergency Room with those complaints. Dr. Schmidt in the Emergency Room actually did a CT scan of the abdomen and pelvis to ensure that there was not any rupture or any apparent complications and it did show distal esophagus wall thickening that was related to the Halo procedure, but no other apparent complications. His labs showed a mild elevation in his white count at 13.4. Chemistry shows an elevated BUN of 19. He was given pain medication as well as antiemetics in the Emergency Room and actually got to the point where he could start to drink Gatorade. However, he was referred for observation. At time of examination the patient is alert and oriented. He complains of some discomfort but no further nausea. LABORATORY: White count on admission was 13,400. At discharge, it was down to 11,200. Hemoglobin was 15.1, hematocrit 46.0, platelet count 169,000. Differential did show a left shift, but was improving and returning to baseline. His electrolytes on BMP were all within normal limits and at discharge, his BUN was 18, creatinine 1.19. At discharge, liver functions all within normal limits. Alkaline phosphatase was elevated at 174 and lipase was normal at 18. Urinalysis did show a small amount of blood, otherwise within normal limits. MICROBIOLOGY: Blood cultures showed no growth at 4 days. RADIOLOGY: Abdominopelvic CT on admission with contrast per radiologic interpretation showed some wall thickening of the distal esophagus, likely related to edema and inflammation from recent Halo procedure extending to the proximal aspect of the stomach. There was diverticulosis, but no mention of diverticulitis. Please see that report for full details. EKG showed sinus bradycardia with no ST changes. HOSPITAL COURSE: Mr. Chandler was admitted for observation after he was having some nausea and vomiting associated with his recent Halo procedure. Due to elevated white count and fever, he was started on some Levaquin and was given IV fluids overnight. On the day of discharge, he was clinically improved and was able to take clear liquids as instructed by his gastrointestinal specialist. PLAN: Mr. Chandler was discharged to followup with Dr. Huff as scheduled as well as his gastrointestinal specialist as scheduled. He was to resume his home medications as instructed and return to the hospital should he have any concerning symptoms. No new medications were given at discharge as he was not showing any other signs of infection. There was no antibiotic coverage continued at discharge. Diet was soft diet as directed by GI specialist. Activity to increase as tolerated. DISPOSITION: The patient was discharged to the care of his . CONDITION AT DISCHARGE Stable and improved. #[id number] [facility]
== END 2018-01-16 12:00 | disposition home or self-care (01) ==
LOC: ER 15:55 → MS 21:00
PROVIDERS: ADMIT Nurse Practitioner; ATTEND Nurse Practitioner
DX: E86.9 Volume depletion, unspecified (principal); R10.84 Generalized abdominal pain; D72.829 Elevated white blood cell count, unspecified; R50.9 Fever, unspecified; I48.0 Paroxysmal atrial fibrillation; K22.70 Barrett's esophagus without dysplasia; E07.9 Disorder of thyroid, unspecified; G89.29 Other chronic pain; F32.9 Major depressive disorder, single episode, unspecified; F41.9 Anxiety disorder, unspecified; F17.220 Nicotine dependence, chewing tobacco, uncomplicated; K57.30 Diverticulosis of large intestine without perforation or abscess without bleeding; M50.30 Other cervical disc degeneration, unspecified cervical region; Z98.890 Other specified postprocedural states; Z79.899 Other long term (current) drug therapy; Z88.0 Allergy status to penicillin; Z88.6 Allergy status to analgesic agent; Z88.7 Allergy status to serum and vaccine; Z90.49 Acquired absence of other specified parts of digestive tract
CPT/HCPCS: 96367; 96365; 96375; 96376; J3490 ×2; J2270; J2405; J7030 ×2; J1956; J7050; 80048 ×2; 36415 ×2; 81001; 80076; 85025 ×2; 87040 ×2; 83690; 74177; 99285; 93005; G0378

== ENCOUNTER → 2018-05-15 | Outpatient (CLI) | payer MEDICARE, OTHER | LOC: YCFC.O 15:32 | PROVIDERS: ATTEND Family Medicine | DX: Z79.899 Other long term (current) drug therapy (principal) ==

== ENCOUNTER → 2018-07-08 | Outpatient (CLI) | payer MEDICARE, OTHER | LOC: BFHH 09:12 | PROVIDERS: ATTEND Emergency Medicine | DX: G06.1 Intraspinal abscess and granuloma (principal); I48.0 Paroxysmal atrial fibrillation; Z41.9 Encounter for procedure for purposes other than remedying health state, unspecified; Z51.81 Encounter for therapeutic drug level monitoring ==

== ENCOUNTER → 2018-07-22 | Outpatient (CLI) | payer MEDICARE, OTHER | LOC: BFHH 09:42 | PROVIDERS: ATTEND Emergency Medicine | DX: G06.1 Intraspinal abscess and granuloma (principal); A41.9 Sepsis, unspecified organism; J18.9 Pneumonia, unspecified organism; I25.10 Atherosclerotic heart disease of native coronary artery without angina pectoris; I10 Essential (primary) hypertension ==

== ENCOUNTER → 2018-07-29 | Outpatient (CLI) | payer MEDICARE, OTHER | LOC: BFHH 09:51 | PROVIDERS: ATTEND Emergency Medicine | DX: G06.1 Intraspinal abscess and granuloma (principal); J18.9 Pneumonia, unspecified organism; I10 Essential (primary) hypertension ==

== ENCOUNTER → 2018-08-05 | Outpatient (CLI) | payer MEDICARE, OTHER | LOC: BFHH 09:26 | PROVIDERS: ATTEND Surgery | DX: G06.1 Intraspinal abscess and granuloma (principal); A41.9 Sepsis, unspecified organism; I10 Essential (primary) hypertension; Z79.2 Long term (current) use of antibiotics ==

== ENCOUNTER → 2018-08-12 | Outpatient (CLI) | payer MEDICARE, OTHER | LOC: BFHH 09:05 | PROVIDERS: ATTEND Emergency Medicine | DX: G06.1 Intraspinal abscess and granuloma (principal); A41.9 Sepsis, unspecified organism; Z79.2 Long term (current) use of antibiotics ==

== ENCOUNTER 2018-08-16 17:01 | Emergency (ER) | payer MEDICARE, OTHER ==
[2018-08-16] MEDS ORDERED: NITROGLYCERIN 0.4 MG 25 EA TAB SL ONE ×2 (17:15→17:21)
[2018-08-16] MEDS ORDERED: ASPIRIN (CHEWABLE) 81 MG TAB ONE (17:15)
[2018-08-16] MEDS ORDERED: ATORVASTATIN 20 MG TAB PO ONE (17:21)
[2018-08-16] MEDS ORDERED: ATENOLOL 25 MG TAB PO ONE (17:21)
[2018-08-16] MEDS ORDERED: ASPIRIN (CHEWABLE) 81 MG TAB PO ONE (17:21)
--- NOTE | 2018-08-16 17:23 | ED.PDOC ---
History of Present Illness - General Chief Complaint: Chest Pain/NH Stated Complaint: Chest pain, SOB, radiating to back, N/V Time Seen by Provider: 08/16/18 17:10 Source: patient, family Exam Limitations: no limitations - History of Present Illness Initial Comments: patient today for severe tightness and hurt his chest without radiation with associated diaphoresis nausea and vomiting 1 here in the ER. Patient has no shortness of breath, cough, wheezing, nor fever or chills. However, patient has been undergoing treatment for the past 6 weeks for recurrent infection from past surgical repair of his lumbar spine. Patient had been on vancomycin and meropenem until several days ago when it was changed to Levaquin and doxycycline. Patient hasn't had chest pain in the past that workup including stress test was negative and he has had no known blockages, interventions, or acute MIs. Patient has a past medical history of hypertension and paroxysmal afib . He does not smoke, drink, or take illicit substances. Although he is allergic to penicillin only penicillin that he received as a child has obtained a reaction and he took meropenem without difficulty. Timing/Duration: 1-3 hours Severity/Quality: severe, tightness Location: substernal Chest Pain Radiation: no radiation Activities at Onset: rest Prior Chest Pain/Cardiac Workup: non-cardiac, stress test - negative 3 years ago Improving Factors: medication - pain medication Worsening Factors: nothing Nitro Today/Relief: 0.4 mg x 2, provided by ED, no relief Aspirin Treatment Today: 325 mg x 1, provided by ED Associated Symptoms: diaphoresis, nausea/vomiting Allergies/Adverse Reactions: Allergies Penicillin G Allergy (Severe, Verified 08/16/18 17:29) Flu Virus Vaccine Allergy (Intermediate, Verified 08/16/18 17:29) Because pt is allergic to eggs. Eggs or Egg-derived Products Adverse Reaction (Verified 08/16/18 17:29) Ketorolac Tromethamine [From Toradol] Adverse Reaction (Verified 08/16/18 17:29) Home Medications: Ambulatory Orders Levothyroxine Sodium [Synthroid] 50 mcg PO DAILY 09/30/15 Omeprazole 40 mg PO BID 06/26/17 Cephalexin 500 mg PO TID 01/15/18 Gabapentin 300 mg PO TID 01/15/18 Metoprolol Succinate [Metoprolol Succinate ER] 100 mg PO BID 01/16/18 Morphine Sulfate [Morphine Sulfate ER] 15 mg PO Q8HR 06/24/18 Review of Systems - Review of Systems Constitutional: States: diaphoresis, malaise EENTM: States: no symptoms reported. Denies: blurred vision, ear pain, nose pain, nose congestion Respiratory: States: no symptoms reported. Denies: cough, short of breath Cardiology: States: chest pain. Denies: edema, palpitations, syncope Gastrointestinal/Abdominal: States: no symptoms reported, nausea, vomiting. Denies: abdominal pain Genitourinary: States: no symptoms reported Musculoskeletal: States: no symptoms reported Skin: States: see HPI Past Medical History (General) - Patient Medical History Hx Seizures: No Hx Stroke: No Hx Dementia: No Hx Asthma: No Hx of COPD: No Hx Cardiac Disorders: Yes - a fib-paroxysmal Hx Congestive Heart Failure: No Hx Pacemaker: Yes Hx Hypertension: No Hx Thyroid Disease: Yes Hx Diabetes: No Hx Gastroesophageal Reflux: No Hx Renal Disease: No Hx Cancer: No Hx of HIV: No Hx Hepatitis C: No Hx MRSA: No - Vaccination History Hx Tetanus, Diphtheria Vaccination: No Hx Influenza Vaccination: No Hx Pneumococcal Vaccination: No - Social History Hx Tobacco Use: No Hx Chewing Tobacco Use: Yes Hx Alcohol Use: No Hx Substance Use: No Hx Substance Use Treatment: No Hx Depression: No Hx Physical Abuse: No Hx Emotional Abuse: No - Female History Patient : No Family Medical History - Family History Mother Family History: Unknown Living Status: Hx Family Asthma: No Hx Family Congestive Heart Failure: No Hx Family Hypertension: No Hx Family Stroke: No Hx Cardiac Disease: No Hx Family Diabetes: No - dad/brother Hx Family Cancer: Yes - lungs-mom Father Living Status: Hx Family Asthma: No Hx Family Congestive Heart Failure: No Hx Family Hypertension: Yes - brother Hx Family Stroke: No Hx Cardiac Disease: Yes - dad Hx Family Diabetes: Yes - brother Hx Family Cancer: No - lungs-mom; Physical Exam - Physical Exam General Appearance: Alert, Anxious, No apparent distress Eyes, Ears, Nose, Throat Exam: PERRL/EOMI, normal ENT inspection, TMs normal, pharynx normal Neck: non-tender, full range of motion, supple, normal inspection Respiratory: chest non-tender, lungs clear, normal breath sounds, no respiratory distress Cardiovascular/Chest: normal peripheral pulses, regular rate, rhythm, no edema, no gallop, no murmur Peripheral Pulses: radial,right: 2+, radial,left: 2+ Gastrointestinal/Abdominal: normal bowel sounds, non tender, soft Extremity: normal range of motion, non-tender Neurologic: clinical project coordinator II-XII nml as tested, alert, normal mood/affect Progress - Progress Progress: 08/16/18 18:09 patient had no improvement with nitro x 2. Morphine however relieved the pain and he felt much better after emesis. However, his lactic acid and wbc were elevated and I am concerned that the change in his antibiotics is not going to be enough to take care of the infection. Will call for admission. 08/16/18 19:25 manager contract here did not feel comfortable with him here vs as he has had a very complicated course and has been at recently. We will transfer to [facility] - Results/Orders Results/Orders: 08/16/18 17:30 EKG STAT 08/16/18 17:45 EKG STAT 08/16/18 17:52 Meropenem [Merrem] 1 gm Sodium Chl 0.9% 50Ml Min-Bag+ [NS 50ml MINI-BAG+] 50 ml IVPB ONCE Vancomycin HCl Inj 1,000 mg Sodium Chloride 0.9% 250Ml [NS 250ml] 250 ml IVPB ONCE 08/16/18 18:05 BLOOD CULTURE Stat Laboratory Results WBC 12.6 K/mm3 (4.8-10.8) H 08/16/18 17:21 RBC 5.36 M/mm3 (4.70-6.10) 08/16/18 17:21 Hgb 16.7 gm/dL (14.0-18.0) 08/16/18 17:21 Hct 49.4 % (42.0-52.0) 08/16/18 17:21 MCV 92.2 fl (80.0-94.0) 08/16/18 17:21 MCH 31.1 pg (27.0-31.0) H 08/16/18 17:21 MCHC 33.8 g/dL (33.0-37.0) 08/16/18 17:21 RDW 13.5 % (11.5-14.5) 08/16/18 17:21 Plt Count 201 K/mm3 (130-400) 08/16/18 17:21 MPV 8.6 fl (7.40-10.4) 08/16/18 17:21 Absolute Neuts (auto) 10.30 K/uL (1.8-6.8) H 08/16/18 17:21 Absolute Lymphs (auto) 1.30 K/uL (1.0-3.4) 08/16/18 17:21 Absolute Monos (auto) 0.80 K/uL (0.2-0.8) 08/16/18 17:21 Absolute Eos (auto) 0.10 K/uL (0.0-0.4) 08/16/18 17:21 Absolute Basos (auto) 0.10 K/uL (0.0-0.1) 08/16/18 17:21 Neutrophils % 82.2 % (42.0-78.0) H 08/16/18 17:21 Lymphocytes % 10.0 % (20.0-50.0) L 08/16/18 17:21 Monocytes % 6.1 % (2.0-9.0) 08/16/18 17:21 Eosinophils % 0.6 % (1.0-5.0) L 08/16/18 17:21 Basophils % 1.1 % (0.0-2.0) 08/16/18 17:21 PT 10.2 SECONDS (9.0-10.9) 08/16/18 17:21 INR 1.02 (0.9-1.15) 08/16/18 17:21 PTT (SP) 22.7 SECONDS (21.8-31.6) 08/16/18 17:21 Sodium 138 mmol/L (135-145) 08/16/18 17:21 Potassium 3.9 mmol/L (3.6-5.0) 08/16/18 17:21 Chloride 105 mmol/L (101-111) 08/16/18 17:21 Carbon Dioxide 18 mmol/L (21-31) L 08/16/18 17:21 Anion Gap 18.9 (12-18) H 08/16/18 17:21 BUN 24 mg/dL (7-18) H 08/16/18 17:21 Creatinine 1.39 mg/dL (0.6-1.3) H 08/16/18 17:21 BUN/Creatinine Ratio 17.3 (10-20) 08/16/18 17:21 Random Glucose 129 mg/dL (70-105) H 08/16/18 17:21 Serum Osmolality 281.4 mOsm/L (275-295) 08/16/18 17:21 Lactic Acid 4.1 mmol/L (0.5-2.2) H* 08/16/18 17:22 Calcium 9.5 mg/dL (8.4-10.2) 08/16/18 17:21 Magnesium 1.9 mg/dL (1.8-2.5) 08/16/18 17:21 Total Bilirubin 1.2 mg/dL (0.2-1.0) H 08/16/18 17:21 AST 34 IU/L (10-42) 08/16/18 17:21 ALT 31 IU/L (10-60) 08/16/18 17:21 Alkaline Phosphatase 147 IU/L (42-121) H 08/16/18 17:21 Creatine Kinase 158 IU/L (38-174) 08/16/18 17:21 CK-MB (CK-2) 3.2 ng/mL (0.0-4.4) 08/16/18 17:21 CK-MB (CK-2) % Not Reportable 08/16/18 17:21 Troponin I < 0.02 ng/mL (0.01-0.05) 08/16/18 17:21 Serum Total Protein 8.0 gm/dL (6.4-8.2) 08/16/18 17:21 Albumin 4.4 g/dl (3.2-5.5) 08/16/18 17:21 Globulin 3.6 gm/dL (2.3-3.5) H 08/16/18 17:21 Albumin/Globulin Ratio 1.2 (1.1-1.9) 08/16/18 17:21 repeat EKG no changes and no ST elevation or depression - EKG/XRAY/CT EKG: Sinus, no ST T wave changes Comments: HR 92 left axis deviation Departure - Departure Clinical Impression: Sepsis Qualifiers: Sepsis type: sepsis due to unspecified organism Qualified Code(s): A41.9 - Sepsis, unspecified organism Disposition: Transfer to Hospital Condition: Good Departure Forms: ED Discharge - Pt. Copy, Patient Portal Self Enrollment Instructions: DI for Chest Pain Referrals: Andre Daley MD [Primary Care Provider] - 1-2 Weeks Home Medications: Ambulatory Orders Levothyroxine Sodium [Synthroid] 50 mcg PO DAILY 09/30/15 Omeprazole 40 mg PO BID 06/26/17 Cephalexin 500 mg PO TID 01/15/18 Gabapentin 300 mg PO TID 01/15/18 Metoprolol Succinate [Metoprolol Succinate ER] 100 mg PO BID 01/16/18 Morphine Sulfate [Morphine Sulfate ER] 15 mg PO Q8HR 06/24/18 Transfer to Outside Facility - Transfer Information Accepting Facility: [facility] Reason for Transfer: specialized care not available
[2018-08-16] MEDS ORDERED: MORPHINE SULFATE INJ 10 MG/ML VIAL IV ONE ×3 (17:34→21:14)
--- NOTE | 2018-08-16 17:42 | RAD ---
EXAM DESCRIPTION: Chest,1 View CLINICAL HISTORY: 68 years Male chest pain COMPARISON: 08/30/2016, 06/24/2018 FINDINGS: The cardiomediastinal silhouette appears unremarkable. No consolidating infiltrates or pleural effusions. No pneumothorax. Prominent costochondral cartilage calcification anteriorly on the left. There is a PICC line in place on the right with the tip in the SVC. IMPRESSION: No acute abnormality is identified. Electronically signed by: Jackelin Argueta MD 08/16/2018 5:40 PM CDT
[2018-08-16] MEDS ORDERED: ONDANSETRON INJ 4 MG/2 ML VIAL IV ONE (17:47)
[2018-08-16] MEDS ORDERED: VANCOMYCIN HCL INJ 1,000 MG in SODIUM CHLORIDE 0.9% 250ML 250 ML IVPB ONE (17:52)
[2018-08-16] MEDS ORDERED: MEROPENEM 1 GM in SODIUM CHL 0.9% 50ML MIN-BAG+ 50 ML IVPB ONE (17:52)
[2018-08-16] MEDS ORDERED: MEROPENEM 1 GM VIAL IVPB ONE (18:20)
[2018-08-16] MEDS ORDERED: SODIUM CHL 0.9% 50ML MIN-BAG+ 50 ML IVPB ONE (18:20)
[2018-08-16] MEDS ORDERED: SODIUM CHLORIDE 0.9% 1000ML 1,000 ML IVS ONE (18:58)
[2018-08-16] MEDS ORDERED: VANCOMYCIN HCL INJ 1,000 MG VIAL IVPB ONE (19:00)
[2018-08-16 21:04] VITALS: BP 138/95
[2018-08-16 21:26] VITALS: TEMP 98.9; O2SAT 98
== END 2018-08-16 21:26 | disposition short-term general hospital (02) ==
LOC: ER 17:01
DX: A41.9 Sepsis, unspecified organism (principal); R07.2 Precordial pain; R11.2 Nausea with vomiting, unspecified; I10 Essential (primary) hypertension; E07.9 Disorder of thyroid, unspecified; I48.0 Paroxysmal atrial fibrillation; Z95.0 Presence of cardiac pacemaker; Z87.891 Personal history of nicotine dependence; Z79.899 Other long term (current) drug therapy; Z88.7 Allergy status to serum and vaccine; Z88.8 Allergy status to other drugs, medicaments and biological substances; Z88.0 Allergy status to penicillin
CPT/HCPCS: 71045; 80053; 82550; 82553; 83605; 83735; 84484; 85025; 85610; 85730; 87040; 93005; J2185; J2270; J2405; J3370; J7030; J7050

== ENCOUNTER → 2018-10-16 | Outpatient (CLI) | payer MEDICARE, OTHER ==
--- NOTE | 2018-10-17 15:51 | MRI ---
EXAM DESCRIPTION: Lumbar Spine w/wo Contrast: Magnetic Resonance Imaging. CLINICAL HISTORY: LUMBAR DISCITIS COMPARISON: None Available. TECHNIQUE: Multiplanar, MRI, multiple standard sequences, without and with 0.1 mL/kg Gadolinium IV contrast, lumbar spine. No adverse reactions. FINDINGS: Posterior lumbar fusion construct L3-S1. No abnormal marrow edema around the hardware or paravertebral or intrinsic spinal fluid collections. Moderate amount of image deformity due to metallic susceptibility artifact. Interbody fusion devices L3-4, L4-5, and L5-S1. Again noted is posterior right migration of the device at L4-5 encroaching on the canal and abutting the right subarticular recess, and the descending right L5 nerve, and the right L4-L5 foramen, and right L4 nerve. Bilateral L4-L5 foraminal stenosis more right than left. Moderate canal narrowing. Mild right L5-S1 foraminal stenosis. Moderate left foraminal narrowing. Mild canal narrowing L3-L4: Trace anterolisthesis. Stable Schmorl's node posterior inferior L2 Previous partial laminectomy left L2. Bilateral hypertrophic facet arthrosis and thickening of the ligaments with moderate canal narrowing. Mild right foraminal stenosis and moderate to severe left foraminal narrowing with normal enhancement. L2-L3: Disc desiccation and anterior bulging and endplate ridging. No posterior bulging. Minimal posterior ligament thickening. Mild to moderate canal narrowing. Anterior disc bulging and endplate ridging. Mild bilateral foraminal narrowing. L1-L2: Normal signal in the disc with disc space preserved. No disc bulging or canal narrowing. Mild foraminal narrowing. No abnormal enhancement. Conus terminates just above the disc space. T12-L1: Minimal disc desiccation with disc space preserved. No canal or foraminal stenosis. Normal contrast enhancement. Anterior T11-T12 disc bulge and anterior endplate ridging. Canal and bilateral foramina are patent. No abnormal contrast enhancement. Vertebral bodies are not compressed at any level. Normal marrow signal in the vertebral bodies and the posterior elements. Normal Contrast enhancement. Paravertebral soft tissues show muscle atrophy..Perivertebral contrast enhancement unremarkable. IMPRESSION: 1. Posterior lumbar fusion construct L3-S1 with bilateral posterior transpedicular screws, unilateral connecting rods, and interbody fusion devices. No complications of this hardware. Migration of the L4-L5 device is again noted in the right posterior direction with minimal encroachment on the canal, right subarticular recess, and right foramen. Stable since the prior study. 2. Bilateral L4-L5 foraminal stenosis more right than left stable since the prior study. 3. L3-L4 trace retrolisthesis with mild right foraminal stenosis stable. Electronically signed by: Paul Kumari MD 10/17/2018 3:49 PM CDT
--- NOTE | 2018-10-17 16:15 | MRI ---
EXAM DESCRIPTION: Thoracic Spine w/wo Contrast: Magnetic Resonance Imaging. CLINICAL HISTORY: THORACIC RADICULOPATHY COMPARISON: MRI scan lumbar spine on this visit. TECHNIQUE: Multiplanar, multiple standard sequences, non contrast MRI, thoracic spine. FINDINGS: Advanced spondylosis T8-T9 with partial fusion of the anterior disc space and significant narrowing posteriorly. Posterior disc remnant bulge with endplate spurs abutting the cord with canal narrowing but no compression. Bilateral foraminal narrowing more on the right. T9-T10 disc space loss disc desiccation large anterior disc spur osteophyte complex bulge abutting the right zuleima of the diaphragm. Posterior disc bulge abutting the anterior cord. Moderate canal narrowing but no cord compression. Bilateral moderate foraminal narrowing. Mild to moderate bilateral foraminal narrowing at T10-T11 and T11-T12. Multiple levels of anterior endplate spurring with disc bulge more to the right of midline. Multiple discs are desiccated. No significant disc space loss at other levels. Remaining discs with normal signal. Disc spaces are preserved. Canal and foramina are patent. No scoliosis. Facet joints are unremarkable. Conus terminates T12-L1. Cord with normal signal, no compression. Paravertebral soft tissues are unremarkable. Normal marrow signal in the remaining vertebral bodies and the posterior elements. Vertebral bodies are not compressed at any level. IMPRESSION: Advanced spondylosis T8-T9 with partial fusion and anterior disc space. Posterior bulge of the disc abutting the cord with no canal or foraminal stenosis or cord compression. Anterior spondylosis T9-T10 and posterior disc bulge abutting the anterior cord with no canal stenosis or cord compression. Bilateral mild to moderate foraminal narrowing at this level as well as T10-T11, and T11-T12. No compression type vertebral body fractures at any level. No canal or foraminal stenosis. Electronically signed by: Paul Kumari MD 10/17/2018 4:13 PM CDT
== END ==
LOC: MRI 10:00
PROVIDERS: ATTEND Emergency Medicine
DX: M47.24 Other spondylosis with radiculopathy, thoracic region (principal); M51.14 Intervertebral disc disorders with radiculopathy, thoracic region; M48.061 Spinal stenosis, lumbar region without neurogenic claudication; M43.16 Spondylolisthesis, lumbar region; Z98.1 Arthrodesis status

== ENCOUNTER → 2019-04-23 | Outpatient (CLI) | payer MEDICARE, OTHER ==
--- NOTE | 2019-04-23 18:03 | MRI ---
EXAM DESCRIPTION: Lumbar Spine w/wo Contrast CLINICAL HISTORY: DISCITIS LUMBAR REGION COMPARISON: 16 October 2018 TECHNIQUE: Multi plantar multi sequence pre and postcontrast imaging. FINDINGS: There is good alignment of the lumbar spine. Pedicle screw fusion is observed from L3 through S1. Interbody fusion is observed from L3 through S1. No extra spinous abnormality is detected. L1-2: Unremarkable. L2-3: The disc is desiccated. Mild loss of disc height is observed. No neural foraminal disease is observed. L3-4: Pedicle screw fusion is observed at this level. There is also evidence of interbody fusion. No disc level pathology is seen. No neural foraminal encroachment of significance is observed. L4-5: Pedicle screw and interbody fusion is observed at this level. There is been some posterior migration of the fusion plug. The posterior migration remains unchanged when compared to the previous exam. There is mild compromise of the right side of the subarachnoid space. Neural foraminal encroachment is difficult to evaluate because of the artifact from the pedicle screws. There is also some scar which enhances adjacent to the retropulsed fusion plug. L5-S1: Pedicle screw and interbody fusion is observed at this level. The fusion appears solid. No abnormal enhancement is detected at this level. No hardware failure is detected. IMPRESSION: 1. Pedicle screw and interbody fusion is observed from L3 through S1. 2. Some posterior migration of the fusion plug at the L4-5 level is observed in the right of midline. There is some adjacent scarring. It remains unchanged when compared to the previous exam. 3. Pedicle screw artifact makes it difficult to evaluate for abnormal enhancement. Evaluation of the neural foramina is also made more difficult by the pedicle screw artifact. Electronically signed by: Rick Zimmerman MD 04/23/2019 6:02 PM CDT